=== PATIENT | female | born 1940 | race Caucasian/White ===

== ENCOUNTER 2020-05-01 14:23 | Outpatient (CLI) | payer MEDICARE, SELFPAY ==
[2020-05-01 15:11] LABS: Basophils Percent Auto 0.4 % (0.2-1.2); Eosinophils Absolute Auto 0.1 K/mm3 (0-0.3); Eosinophils Percent Auto 2.5 % (0-4.4); Hematocrit 35.9 % (37.0-47.0); Hemoglobin 11.6 g/dL (12.0-15.0); Immature Granulocyte Absolute 0.02 K/mm3 (0.00-0.031); Immature Granulocyte Percent A 0.4 % (0-0.5); Lymphocytes Absolute Auto 0.96 K/mm3 (0.9-3.2); Lymphocytes Percent Auto 18.4 % (18.3-44.2); Mean Corpuscular HGB Conc 32.3 g/dl (32-36); Mean Corpuscular Hemoglobin 30.3 pg (26-34); Mean Corpuscular Volume 93.7 fl (80-100); Mean Platelet Volume 10.9 fl (7.4-10.4); Monocytes Absolute Auto 0.8 K/mm3 (0.1-0.6); Monocytes Percent Auto 14.9 % (2.6-8.5); Neutrophils Absolute Auto 3.3 K/mm3 (1.3-6.7); Neutrophils Percent Auto 63.4 % (45.5-73.1); Platelet Count Result 122 k/mm3 (150-375); Red Blood Count 3.83 M/mm3 (4.2-5.4); Red Cell Distribution Width 14.6 % (11.5-14.5); White Blood Count 5.2 K/mm3 (4.5-10.0)
[2020-05-01 16:42] LABS: Iron 78 ug/dL (37-170)
[2020-05-01 16:52] LABS: Percent Iron Saturation 25 % (20-50)
== END 2020-05-01 14:24 | disposition home or self-care (01) ==
LOC: ANHLAB 14:27
PROVIDERS: PCP Internal Medicine; Visit Provider Internal Medicine Hematology & Oncology
DX: D50.9 Iron deficiency anemia, unspecified (principal)
CPT/HCPCS: 36415; 83540; 83550; 85025

== ENCOUNTER 2020-09-20 12:35 | Outpatient (CLI) | payer MEDICARE, SELFPAY ==
--- NOTE | 2020-09-21 16:47 | WPDPFTINT ---
PFT Procedure Performed PFT Procedure Performed Spirometry with Pre/Post Bronchodilator Plethysmography (Lung Vol) Diffusing Cap (DLCO) Flow Vol Loop PFT Interpretation This is a pulmonary function test with pre and post-bronchodilator spirometry, plethysmography and diffusing capacity. The test was performed and results interpreted in accordance with the 2019 and 2005 ATS/ERS Task Force guidelines respectively using the Global Lung Function Initiative-2012 reference equations. Patient demonstrated good effort and cooperation. Reproducibility criteria were met. The quality of the pre bronchodilator spirometry maneuver was Grade A and post bronchodilator spirometry maneuver was Grade A. Findings: Spirometry: There is decreased maximal expiratory airflow at low lung volumes with concave expiratory flow tracing. The pre bronchodilator FVC is 1.02 L, 56% predicted. The pre bronchodilator FEV1 is 0.74 L, 52% predicted. The FEV1: FVC ratio 72%. The post bronchodilator FVC is 1.01 L, representing no change. The post bronchodilator FEV1 is 0.79 L, representing a 7% increase. Plethysmography: The total lung capacity is 2.09 L, 54% predicted. The functional residual capacity is 1.10 L, 50% predicted. The residual volume is 0.93 L, 46% predicted. Diffusing capacity: The absolute diffusion capacity is 7.8, 49% predicted. The diffusing capacity corrected for alveolar volume is 3.97, 89% predicted. Impression: There is a combined obstructive and restrictive ventilatory abnormality. There are no guidelines to assign the severity of obstruction and restriction with a combined abnormality. In my opinion, given the mildly concave expiratory flow tracing and normal FEV1: FVC ratio and moderate restrictive abnormality I would state there is a mild obstructive abnormality and a moderate restrictive abnormality resulting in a moderately severe decreased FEV1. There is no significant improvement after inhaling a single dose of albuterol. The diffusing capacity is moderately decreased but normalizes when corrected for alveolar volume. There are no prior studies for comparison
== END 2020-09-20 12:36 | disposition home or self-care (01) ==
PROVIDERS: PCP Internal Medicine; Visit Provider Internal Medicine Critical Care Medicine
DX: R06.02 Shortness of breath (principal)
CPT/HCPCS: 94060; 94726; 94729

== ENCOUNTER 2021-10-15 15:13 | Inpatient (IN) | payer MEDICARE, SELFPAY ==
[2021-10-15] VITALS (19 sets, daily range): BP systolic 100–122; BP diastolic 45–69; PULSE 66–83; RESP 14–31; TEMP 36.7–37; O2SAT 95–100; BMI 29.3
--- NOTE | ~2021-10-15 | CT_ITS ---
EXAMINATION: CT abdomen pelvis wo con DATE: 10/15/2021 16:28 INDICATION: Abdominal pain, possible diverticulitis TECHNIQUE: Computed tomography (CT) of the abdomen and pelvis was performed without intravenous contr ast. The dose-length product (DLP) was 872.51 mGy-cm. Automated exposure control and iterative recons truction technique were employed. COMPARISON: None FINDINGS: There are small pleural effusions. There is mild atelectasis of the visualized lung bases. The heart size is normal. There is a 9 mm cyst of the right hepatic lobe. Punctate calcifications of the liver and spleen are consistent with old granulomatous disease. The pancreas and adrenal glands a re normal. The right kidney is unremarkable. There is a 1.5 cm cyst of the left kidney. 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 No pathologically enlarged abdomina l or pelvic lymph nodes are identified. There is no free intraperitoneal gas or evidence of bowel obs truction. There is streak artifact in the pelvis from right hip arthroplasty and intramedullary left femoral edy. There is inflammatory change in the pelvis, likely related to diverticulitis although as sessment is difficult due to streak artifact. There are compression and burst fractures throughout th e visualized lower thoracic and lumbar spine. Vertebroplasty change is present at L1. IMPRESSION: 1. Probable uncomplicated diverticulitis of the sigmoid colon. Assessment is limited by streak artifa ct in the pelvis from orthopedic hardware. Reviewed, dictated and finalized at location A. IMPRESSION: 1. Probable uncomplicated diverticulitis of the sigmoid colon. Assessment is li mited by streak artifact in the pelvis from orthopedic hardware.
--- NOTE | ~2021-10-15 | XR_ITS ---
EXAMINATION: XR chest 1V portable DATE: 10/15/2021 22:15 INDICATION: Wheezing. TECHNIQUE: A single frontal view of the chest was obtained. COMPARISON: CT abdomen and pelvis 10/15/2021 FINDINGS: A calcified left lung nodule and calcified left hilar lymph nodes are consistent with old g ranulomatous disease. There are airspace opacities at left lung base. No pleural effusion or pneumoth orax. The heart size is normal. There are changes of vertebroplasty in lumbar spine. IMPRESSION: 1. Airspace opacities at left lung base, consistent with atelectasis versus pneumonia. Reviewed, dictated and finalized at location A. IMPRESSION: 1. Airspace opacities at left lung base, consistent with atelectasis versus pne umonia.
--- NOTE | 2021-10-15 15:53 | ED.ABDPAIN ---
HPI - Abdominal Pain General Chief Complaint: Abdominal Pain Stated Complaint: diverticulitis flare Time Seen by Provider: 10/15/21 15:51 History of Present Illness HPI narrative: The patient is an 81-year-old female with a history of asthma/COPD, atrial fibrillation, aortic stenosis, hypertension, hyperlipidemia, presenting to the emergency department for evaluation of abdominal pain. Patient reports lower abdominal pain that is worsening over the past several days. Associated with nausea, but no episodes of emesis. She reports mild constipation especially if she forgets to take MiraLAX. Patient denies any blood or mucus present in her stool. Patient reports aching pain in the right left lower quadrant. She denies any dysuria or hematuria. Patient reports subjective fever and chills. Patient has had decreased oral intake secondary to the abdominal pain. Patient states that in the past she has a history of diverticulitis and that this feels similar. Of note, patient's family states she has a history of chronic back pain, vertebral fractures, spine surgery for which she used to follow with pain management. Patient became tired of the constant follow-ups and interventions in this patient had stopped most of her pain management medication months ago and has not been seen for follow-up. She denies recent fall or injury but reports chronic back pain without focal weakness or numbness. Related Data Home Medications Medication Instructions Recorded Confirmed albuterol sulfate 2.5 mg/3 mL 2.5 mg inhalation Q6H 07/18/20 (0.083 %) solution for nebulization atorvastatin 10 mg tablet 10 mg PO DAILY 07/18/20 citalopram 40 mg tablet 20 mg PO DAILY 07/18/20 diltiazem HCl 180 mg 180 mg PO DAILY 07/18/20 capsule,extended release 24 hr furosemide 40 mg tablet 40 mg PO QAM 07/18/20 budesonide-formoterol HFA 80 2 puff inhalation Q12H 07/19/20 mcg-4.5 mcg/actuation aerosol inhaler (Symbicort) calcium carbonate 600 mg-vitamin 1 tablet PO DAILY 07/19/20 D3 5 mcg (200 unit) tablet ferrous sulfate 325 mg (65 mg 325 mg PO DAILY 07/19/20 iron) tablet levothyroxine 125 mcg capsule 125 mcg PO DAILY 07/19/20 metoprolol tartrate 25 mg tablet 12.5 mg PO DAILY 05/20/21 omeprazole 40 mg capsule,delayed 40 mg PO DAILY 07/19/20 release potassium chloride 20 mEq 20 meq PO DAILY 07/19/20 tablet,extended release rivaroxaban 20 mg tablet (Xarelto) 20 mg PO DAILY 07/19/20 Allergies Allergy/AdvReac Type Severity Reaction Status Date / Time metoclopramide Allergy Unknown Unknown Verified 10/15/21 18:29 Iodinated Contrast Media Allergy Hives Verified 10/15/21 18:29 raloxifene [From Evista] Allergy Unknown Verified 10/15/21 18:29 sulfamethoxazole Allergy Unknown Verified 10/15/21 18:29 [From Bactrim] trimethoprim [From Bactrim] Allergy Unknown Verified 10/15/21 18:29 codeine AdvReac Unknown Nausea Verified 10/15/21 18:29 Review of Systems Review of Systems: CONSTITUTIONAL: Denies fever, chills, or sweats. ENT: Denies rhinorrhea, congestion, sore throat, or otalgia. CARDIOVASCULAR: Denies chest pain, palpitations, or edema. RESPIRATORY: Denies cough or dyspnea. GASTROINTESTINAL: Patient reports abdominal pain, nausea, constipation GENITOURINARY: Denies dysuria or hematuria. SKIN: Denies rash or itching. MUSCULOSKELETAL: Reports chronic back pain, denies focal joint pain, or myalgia. NEUROLOGIC: Denies headache, numbness, patient reports feeling generally weak PMFSH Past Medical History Medical History Anxiety and depression Aortic stenosis Asthma-COPD overlap syndrome Atrial fibrillation Chronic pain Diabetes mellitus Hyperlipidemia Hypertension Hypothyroidism Restless legs syndrome (RLS) Surgical History Surgical History H/O: hysterectomy History of orthopedic surgery Hx of appendectomy Hx of rojas
[2021-10-15 16:18] LABS: Appearance Urine Clear (Clear); Basophils Percent Auto 0.5 % (0.2-1.2); Bilirubin Urine 1+ (Negative); Blood Urine Negative (Negative); Color Urine Yellow (Yellow); Eosinophils Absolute Auto 0.1 K/mm3 (0-0.3); Eosinophils Percent Auto 0.6 % (0-4.4); Glucose Urine UA Negative (Negative); Hemoglobin 13.2 g/dL (12.0-15.0); Immature Granulocyte Absolute 0.02 K/mm3 (0.00-0.031); Immature Granulocyte Percent A 0.3 % (0-0.5); Immature Platelet Fraction Pct 2.6 % (0.9-11.2); Ketones Urine Trace mg/dL (Negative); Leukocyte Esterase Ur Negative LEU/UL (Negative); Lymphocytes Absolute Auto 1.34 K/mm3 (0.9-3.2); Lymphocytes Percent Auto 16.8 % (18.3-44.2); Mean Corpuscular HGB Conc 33.8 g/dl (32-36); Mean Corpuscular Hemoglobin 32.2 pg (26-34); Mean Corpuscular Volume 95.1 fl (80-100); Mean Platelet Volume 10.6 fl (7.4-10.4); Monocytes Absolute Auto 1.4 K/mm3 (0.1-0.6); Monocytes Percent Auto 17.6 % (2.6-8.5); Neutrophils Absolute Auto 5.1 K/mm3 (1.3-6.7); Neutrophils Percent Auto 64.2 % (45.5-73.1); Nitrate Urine Negative (Negative); Platelet Count Result 110 k/mm3 (150-375); Protein Urine Negative (Negative); Red Cell Distribution Width 14.7 % (11.5-14.5); Specific Grav Ur 1.015 (1.001-1.035)
[2021-10-15 16:29] LABS: Alanine Aminotransferase 19 U/L (6-35); Albumin Level 2.9 g/dL (3.5-5.1); Alkaline Phosphatase 112 U/L (38-126); Anion Gap 9 mmol/L (8-16); Aspartate Amino Transferase 36 U/L (14-36); Blood Urea Nitrogen 16 mg/dL (7-17); Calcium 7.9 mg/dL (8.4-10.2); Carbon Dioxide 27 mmol/L (22-30); Chloride 98 mmol/L (98-107); Estimated Glomerular Filt Rate > 60; Glucose 89 mg/dL (65-110); Lipase 25 U/L (23-300); Potassium 2.8 mmol/L (3.4-5.0); Sodium 134 mmol/L (137-145)
[2021-10-15 16:40] LABS: Mucus Urine Rare /lpf; RBC Urine 0-2 /hpf (0-2); WBC Urine 0-3 /hpf
[2021-10-15 16:45] LABS: Add Urine Microscopic? YES
[2021-10-15] MEDS: SODIUM CHLORIDE 0.9% IV 1,000 ML 999 ML IV CONT (16:49)
[2021-10-15 17:40] LABS: Magnesium 1.9 mg/dL (1.6-2.3); Phosphorus 2.9 mg/dL (2.5-4.5)
[2021-10-15] MEDS: POTASSIUM CHLORIDE INJ 40 MEQ in SODIUM CHLORIDE 0.9% IV 500 ML 130 MEQ IVPB ×2 (17:49→23:25)
[2021-10-15] MEDS: metroNIDAZOLE 500 MG/ISO 100ML 500 MG/100 ML BAG 100 MG IVPB (19:23)
[2021-10-15 19:38] LABS: SARS-CoV-2 RNA PCR Negative
[2021-10-15] MEDS: ACETAMINOPHEN 325 MG TABLET 650 MG PO (19:47)
[2021-10-15] MEDS: CIPROFLOXACIN 400 MG/D5W 200ML 200 ML 200 MG IVPB (20:42)
--- NOTE | 2021-10-15 21:24 | ADMGEN ---
This patient, Tammy Mccracken, was admitted to Medical Room [facility]- at 2110. Patient/family oriented to hospital policies and general routines including ID bracelet, bed and alarms, visiting hours, pain management, procedures, bathroom and other care routines, personal items, smoking policy, room service/diet, and visiting hours. Information on how to activate the Rapid Response Team has been discussed. Patient/Family are encouraged to report perceived risks to care and to ask questions if they do not understand what they are told or what they should do.
[2021-10-15 21:38] LABS: Glucose Point of Care 131 mg/dl (65-105)
[2021-10-15] MEDS: FAMOTIDINE 20 MG/2 ML VIAL IV PUSH (22:17)
[2021-10-15] MEDS: fentaNYL CITRATE INJ (*CRX) 100 MCG/2 ML VIAL 25 MCG IV PUSH (22:17)
--- NOTE | 2021-10-15 22:36 | PM.IMHP ---
H&P: HPI History of Present Illness Date/Time: 10/15/21 22:36 Chief Complaint: Abdominal pain Narrative: Greater than 30 minutes spent reviewing chart, evaluating, treating, counseling patient. Anticipate less than 48 hour admission, will admit under observation. 81-year-old female past medical history of depression/anxiety, hypothyroidism, COPD with restrictive component based on 08/2020 PFTs, aortic stenosis, atrial fibrillation not on anticoagulation, diabetes, HLD/HTN, RLS. Presents with abdominal pain that started 5 days ago. Patient reports sharp and crampy pain that is intermittent. States it is mainly in bilateral upper quadrants. denies nausea/vomiting. Patient typically has regular bowel movements while taking MiraLax, however for the last 5 days has had constipation with only a small amount of stool yesterday. Denies melena or hematochezia. Patient reports poor food intake, still however states she has been hydrating. Patient also reports chest pain that occurred 5 days ago while she was sitting watching TV. States epigastric, felt like indigestion without radiation. Denied nausea/vomiting or shortness of breath with a vent. Lasted for about 4 minutes. Patient states she has these episodes from time to time. Patient denies fever/chills. In ED, vitals stable. Patient is afebrile. Labs remarkable for platelet count of 110, potassium 2.8, sodium 134, calcium 7.9, bilirubin 3 with normal AST/ALT. 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 CT also shows probable uncomplicated diverticulitis of the sigmoid colon. Patient given dose of Cipro/Flagyl, Pepcid, potassium 40 mEq, and 1 L normal saline bolus. Review of Systems Review of Systems: Ten point ROS reviewed, negative unless otherwise specified per HPI [facility] Past Medical History Medical History (Updated 10/15/21 @ 22:47 by Alek Obregon DO) Anxiety and depression Aortic stenosis Asthma-COPD overlap syndrome Atrial fibrillation Chronic pain Diabetes mellitus Hyperlipidemia Hypertension Hypothyroidism Restless legs syndrome (RLS) Surgical History Surgical History H/O: hysterectomy History of orthopedic surgery Hx of appendectomy Hx of cholecystectomy Hx of tonsillectomy Family History Family History (Updated 10/15/21 @ 21:28 by Gary Carcamo RN) Father Malignant tumor of colon Heart disease Cerebrovascular accident Mother Diabetes mellitus Heart disease Sibling Breast cancer Social History Social History Smoking status: Never smoker Second hand tobacco smoke exposure: No Alcohol intake: never Substance use: never Spiritual care concerns: No Meds Home Medications and Allergies Home Medications Medication Instructions Recorded Confirmed Type albuterol sulfate 2.5 mg/3 mL 2.5 mg inhalation Q6H PRN Wheezing 07/18/20 10/15/21 History (0.083 %) solution for nebulization atorvastatin 10 mg tablet 10 mg PO DAILY 07/18/20 10/15/21 History citalopram 40 mg tablet 40 mg PO DAILY 07/18/20 10/15/21 History furosemide 40 mg tablet 40 mg PO BID 07/18/20 10/15/21 History budesonide-formoterol HFA 80 2 puff inhalation Q12H 07/19/20 10/15/21 History mcg-4.5 mcg/actuation aerosol inhaler (Symbicort) calcium carbonate 600 mg-vitamin 1 tablet PO DAILY 07/19/20 10/15/21 History D3 5 mcg (200 unit) tablet ferrous sulfate 325 mg (65 mg 325 mg PO DAILY 07/19/20 10/15/21 History iron) tablet levothyroxine 125 mcg capsule 125 mcg PO DAILY 07/19/20 10/15/21 History metoprolol tartrate 25 mg tablet 25 mg PO BID 07/19/20 10/15/21 History omeprazole 40 mg capsule,delayed 40 mg PO DAILY 07/19/20 10/15/21 History release potassium chloride 20 mEq 10 meq PO DAILY 07/19/20 10/15/21 History tablet,extended release
[2021-10-15] MEDS: LACTATED RINGERS 1,000 ML 100 ML IV CONT (23:25)
[2021-10-16] VITALS (11 sets, daily range): BP systolic 116–125; BP diastolic 44–57; PULSE 55–82; RESP 14–18; TEMP 36.3–36.9; O2SAT 96–99
--- NOTE | 2021-10-16 | ECG_ITS ---
Measurements Intervals [address] Rate: 62 P: 24 [place]: 148 QRS: -16 QRSD: 106 T: 0 QT: 431 QTc: 440 Interpretive Statements SINUS RHYTHM LEFT VENTRICULAR HYPERTROPHY AND ST-T CHANGE [VOLTAGE CRITERIA PLUS ST/T ABNORMALITY] ABNORMAL ECG NO PREVIOUS ECG AVAILABLE FOR COMPARISON Electronically Signed On 10-16-2021 10:49:34 CDT by Roger Guzman M.D.
[2021-10-16] MEDS: METOPROLOL TARTRATE 25 MG TABLET PO ×3 (00:51→16:28)
[2021-10-16] MEDS: metroNIDAZOLE 500 MG/ISO 100ML 500 MG/100 ML BAG 100 MG IVPB ×3 (05:06→20:39)
[2021-10-16] MEDS: LEVOTHYROXINE SODIUM 125 MCG TABLET PO (05:06)
[2021-10-16 06:54] LABS: Basophils Percent Auto 0.5 % (0.2-1.2); Eosinophils Absolute Auto 0.2 K/mm3 (0-0.3); Eosinophils Percent Auto 3.2 % (0-4.4); Hematocrit 36.1 % (37.0-47.0); Hemoglobin 11.9 g/dL (12.0-15.0); Immature Granulocyte Absolute 0.03 K/mm3 (0.00-0.031); Immature Granulocyte Percent A 0.5 % (0-0.5); Immature Platelet Fraction Pct 2.6 % (0.9-11.2); Lymphocytes Absolute Auto 1.15 K/mm3 (0.9-3.2); Lymphocytes Percent Auto 20.3 % (18.3-44.2); Mean Corpuscular Hemoglobin 31.6 pg (26-34); Mean Corpuscular Volume 95.8 fl (80-100); Mean Platelet Volume 10.8 fl (7.4-10.4); Monocytes Absolute Auto 0.9 K/mm3 (0.1-0.6); Monocytes Percent Auto 15.5 % (2.6-8.5); Neutrophils Absolute Auto 3.4 K/mm3 (1.3-6.7); Red Blood Count 3.77 M/mm3 (4.2-5.4); Red Cell Distribution Width 14.9 % (11.5-14.5); White Blood Count 5.7 K/mm3 (4.5-10.0)
[2021-10-16 07:11] LABS: Alanine Aminotransferase 16 U/L (6-35); Albumin Level 2.3 g/dL (3.5-5.1); Alkaline Phosphatase 89 U/L (38-126); Anion Gap 3 mmol/L (8-16); Aspartate Amino Transferase 32 U/L (14-36); Bilirubin,Total 1.3 mg/dL (0.2-1.3); Blood Urea Nitrogen 15 mg/dL (7-17); Calcium 7.8 mg/dL (8.4-10.2); Carbon Dioxide 27 mmol/L (22-30); Chloride 103 mmol/L (98-107); Estimated Glomerular Filt Rate > 60; Glucose 76 mg/dL (65-110); Potassium 3.7 mmol/L (3.4-5.0); Sodium 133 mmol/L (137-145)
[2021-10-16 07:31] LABS: Hemoglobin A1C 4.7 % (<5.7)
[2021-10-16 07:34] LABS: Platelet Count Result 85 k/mm3 (150-375)
[2021-10-16 08:19] LABS: Glucose Point of Care 92 mg/dl (65-105)
[2021-10-16 08:19] LABS: Thyroid Stimulating Hormone Reflex 0.921 uIU/mL (0.465-4.68)
[2021-10-16] MEDS: FERROUS SULFATE 324 MG TABLET PO (08:42)
[2021-10-16] MEDS: CITALOPRAM HYDROBROMIDE 20 MG TABLET 40 MG PO (08:43)
[2021-10-16] MEDS: CIPROFLOXACIN 400 MG/D5W 200ML 200 ML 200 MG IVPB ×2 (08:44→20:39)
[2021-10-16] MEDS: FAMOTIDINE 20 MG/2 ML VIAL IV PUSH ×2 (08:44→20:39)
[2021-10-16] MEDS: PANTOPRAZOLE SODIUM IV 40 MG VIAL IV PUSH (08:44)
[2021-10-16 12:40] LABS: Glucose Point of Care 112 mg/dl (65-105)
--- NOTE | 2021-10-16 15:41 | PM.IMPN ---
Progress Note: A&P Assessment and Plan (1) Diverticulitis large intestine: Code(s): K57.32 - Diverticulitis of large intestine without perforation or abscess without bleeding Status: Acute Assessment and Plan: Presented with abdominal pain, stating similar symptoms to prior episode of diverticulitis CT on presentation showed uncomplicated diverticulitis of the sigmoid colon Continue metronidazole and ciprofloxacin Full liquid diet. Advance diet as tolerated Supportive care. Analgesics available as needed Will discontinue IV fluids as patient is tolerating PO intake (2) Acute hypokalemia: Code(s): E87.6 - Hypokalemia Status: Acute Assessment and Plan: Resolved with supplementation Potassium 3.7 today Monitor BMP (3) Atrial fibrillation: Code(s): I48.91 - Unspecified atrial fibrillation Status: Acute Assessment and Plan: Rate is controlled. Continue metoprolol tartrate She was recently taken off Xarelto and Cardizem for unclear reasons. She is not on systemic anticoagulation, possibly due to fall risk. (4) Diabetes mellitus: Code(s): E11.9 - Type 2 diabetes mellitus without complications Status: Acute Assessment and Plan: A1c is 4.7 No need for further monitoring (5) Asthma-COPD overlap syndrome: Code(s): J44.9 - Chronic obstructive pulmonary disease, unspecified Status: Acute Assessment and Plan: No acute issues at this time Albuterol as needed (6) Anxiety and depression: Code(s): F41.9 - Anxiety disorder, unspecified; F32.9 - Major depressive disorder, single episode, unspecified Status: Acute Assessment and Plan: No acute issues Continue citalopram (7) Hypothyroidism: Code(s): E03.9 - Hypothyroidism, unspecified Status: Acute Assessment and Plan: TSH is within normal limits Continue levothyroxine (8) Abnormal chest x-ray: Code(s): R93.89 - Abnormal findings on diagnostic imaging of other specified body structures Status: Acute Assessment and Plan: CXR completed yesterday indication of wheezing, patient denies wheezing and no wheezing on exam today CXR showed airspace opacities at the left lung base consistent with atelectasis vs pneumonia Patient has no clinical signs/symptoms to suggest pneumonia. Does report history 3 weeks productive cough that has long been resolved At this time, no indication for antibiotics/treatment of pneumonia Provided incentive spirometry for likely atelectasis Subjective Date/time seen: 10/16/21 15:41 Interval history: Date of service: 10/16/2021 Tammy Mccracken is 81-year-old female with a history of atrial fibrillation, type 2 diabetes mellitus, hypertension, hyperlipidemia, hypothyroidism, aortic stenosis who is seen in follow-up for acute uncomplicated diverticulitis. Patient states this morning she was having abdominal pain that has resolved after she had a bowel movement. She reports a bright red bloody stool today. She has been able to tolerate her full liquid diet. She endorses ?a little bit of nausea but no episodes of emesis. Denies fevers or chills. She denies weakness, dizziness, lightheadedness. She typically uses a wheelchair but does not have this here. She was able to stand and pivot today to the bedside commode with assistance. She denies shortness of breath or cough. She states about 3 weeks ago she had a productive cough that has resolved. She denies hematemesis. No chest pain. Denies urinary symptoms including dysuria or hematuria. Review of Systems Review of Systems: All systems reviewed & are unremarkable except as noted in HPI and below Exam Narrative: General: Well-nourished, well-appearing 81-year-old female, sitting up in bed, comfortable, NARD Neuro: awake, alert and oriented x4, speech clear, no focal neuro deficits noted HEENMT: normocephali
[2021-10-16 17:10] LABS: Glucose Point of Care 83 mg/dl (65-105)
--- OUTSIDE RECORDS SUMMARY | 2021-10-16 19:24 | XMS_ITS ---
:1940 Author Care Team Providers Name Role Phone DR. MARIA TERESA NGUYEN Primary Care Provider [phone] DR. MARIA TERESA NGUYEN Referring Provider [phone] Allergies Code Code System Name Reaction Severity Status Onset Iodinated Contrast Hives Moderate to Active 01/23/2014 Media Severe 213717 RxNorm Bactrim ? ? Active ? 2670 RxNorm Codeine ? ? Active ? 712239 RxNorm Evista ? ? Active ? 5630 RxNorm Reglan ? ? Active ? Notes: Some allergies listed in Docume nts: #[id number], #[id number], [id number], [id number], [id number], [id number], #[id number], [id number], [id number], [id number], [id number], #[id number] c ould not be added to this patient's chart. Please review these documents and add th baldemar allergies to the patient's chart manually as needed. Medications Name Status Start Date Stop Date ? ? albuterol sulfate 2.5 mg/3 mL (0.083 %) solution for nebulizatio n Completed ? 03/23/2018 INHALE 1 VIAL PER NEBULIZER Q 6 H PRN albuterol sulfate HFA 90 mcg/actuation aerosol Active ? Not available inhaler Alphagan P 0.1 % eye drops Completed ? 01/11 alprazolam 0.25 mg tablet Completed ? 2016 amoxicillin 500 mg capsule Completed ? 05/12 TK ONE C PO TID FOR 7 DAYS amoxicillin 500 mg tablet Unknown ? Not av ailable Take 1 tablet 3 times a day by oral route for 7 days. amoxicillin 875 mg tablet Unknown ? Not av ailable amoxicillin 875 mg-potassium clavulanate 125 mg tablet Completed ? 04/22/2021 TAKE 1 TABLET BY MOUTH EVERY 12 HOURS FOR 7 DAYS ampicillin 500 mg capsule Completed ? 2020 Take 1 capsule TID for 7 days
--- OUTSIDE RECORDS SUMMARY | 2021-10-16 19:24 | XMS_ITS ---
:1940 Author Care Team Providers Name Role Phone DR. MARIA TERESA NGUYEN Primary Care Provider [phone] DR. MARIA TERESA NGUYEN Referring Provider [phone] VIRA LARIOS OTHER [phone] MARIA TERESA NGUYEN MD Primary Care Provider [phone] Allergies Code Code System Name Reaction Severity Status Onset Iodinated Contrast Hives Moderate to Active 01/23/2014 Media Severe 801552 RxNorm Bactrim ? ? Active ? 2670 RxNorm Codeine ? ? Active ? 040733 RxNorm Evista ? ? Active ? 9230 RxNorm Reglan ? ? Active ? Notes: Some allergies listed in Docume nts: #[id number], #[id number], #[id number], #[id number], #[id number], #[id number], #[id number], #[id number], #[id number] could not be added to this patient's chart. Please review these doc uments and add these allergies to the patient's chart manually as needed. Medications Name Status Start Date Stop Date ? ? albuterol sulfate 2.5 mg/3 mL (0.083 %) solution for nebulizatio n Completed ? 03/23/2018 INHALE 1 VIAL PER NEBULIZER Q 6 H PRN albuterol sulfate HFA 90 mcg/actuation aerosol Active ? Not available inhaler Alphagan P 0.1 % eye drops Completed ? 01/11 Alphagan P 0.15 % eye drops Active ? Not available alprazolam 0.25 mg tablet Completed ? 2016 amoxicillin 500 mg capsule Completed ? 05/12 TK ONE C PO TID FOR 7 DAYS amoxicillin 500 mg tablet Unknown ? Not av ailable Take 1 tablet 3 times a day by oral route for 7 days. amoxicillin 875 mg tablet Unknown ? Not av ailable amoxicillin 875 mg-potassium clavulanate 125 mg tablet Completed ? 01/21/2017 TK ONE T PO Q 12 H FOR 7 DAYS ampicillin
[2021-10-16 20:52] LABS: Glucose Point of Care 95 mg/dl (65-105)
[2021-10-16] MEDS: KETOROLAC 30 MG/ML VIAL (*BKC) IM (21:05)
[2021-10-17] VITALS (7 sets, daily range): BP systolic 128; BP diastolic 48; PULSE 54–69; RESP 14–18; TEMP 36.7; O2SAT 99
[2021-10-17 06:02] LABS: Hematocrit 35.5 % (37.0-47.0); Hemoglobin 11.9 g/dL (12.0-15.0); Immature Platelet Fraction Pct 2.5 % (0.9-11.2); Mean Corpuscular HGB Conc 33.5 g/dl (32-36); Mean Corpuscular Hemoglobin 32.1 pg (26-34); Mean Corpuscular Volume 95.7 fl (80-100); Mean Platelet Volume 10.6 fl (7.4-10.4); Platelet Count Result 98 k/mm3 (150-375); Red Blood Count 3.71 M/mm3 (4.2-5.4); Red Cell Distribution Width 14.9 % (11.5-14.5); White Blood Count 4.8 K/mm3 (4.5-10.0)
[2021-10-17] MEDS: LEVOTHYROXINE SODIUM 125 MCG TABLET PO (06:09)
[2021-10-17] MEDS: metroNIDAZOLE 500 MG/ISO 100ML 500 MG/100 ML BAG 100 MG IVPB (06:10)
[2021-10-17 06:13] LABS: Anion Gap 2 mmol/L (8-16); Blood Urea Nitrogen 16 mg/dL (7-17); Calcium 8.2 mg/dL (8.4-10.2); Carbon Dioxide 27 mmol/L (22-30); Chloride 101 mmol/L (98-107); Estimated Glomerular Filt Rate 53; Glucose 77 mg/dL (65-110); Potassium 3.8 mmol/L (3.4-5.0); Sodium 130 mmol/L (137-145)
[2021-10-17 07:42] LABS: Glucose Point of Care 78 mg/dl (65-105)
[2021-10-17] MEDS: CITALOPRAM HYDROBROMIDE 20 MG TABLET 40 MG PO (08:25)
[2021-10-17] MEDS: CIPROFLOXACIN 400 MG/D5W 200ML 200 ML 200 MG IVPB (08:25)
[2021-10-17] MEDS: FERROUS SULFATE 324 MG TABLET PO (08:26)
[2021-10-17] MEDS: METOPROLOL TARTRATE 25 MG TABLET PO (08:26)
[2021-10-17] MEDS: PANTOPRAZOLE SODIUM IV 40 MG VIAL IV PUSH (08:26)
[2021-10-17] MEDS: FAMOTIDINE 20 MG/2 ML VIAL IV PUSH (08:26)
[2021-10-17] MEDS: ALBUTEROL SULFATE NEB 2.5 MG/3 ML INH INHALATION (10:44)
--- NOTE | 2021-10-17 11:37 | PM.DS ---
DS: Admitting Diagnosis Discharge Date 10/17/2021 Admitting Diagnosis Diverticulitis DS: Discharge Diagnosis Discharge Diagnosis (1) Diverticulitis large intestine: Code(s): K57.32 - Diverticulitis of large intestine without perforation or abscess without bleeding Status: Acute Assessment and Plan: Presented with abdominal pain, stating similar symptoms to prior episode of diverticulitis CT on presentation showed uncomplicated diverticulitis of the sigmoid colon Treated with IV metronidazole and ciprofloxacin, transition to PO on discharge for full course of treatment Able to advance to bland, low fiber diet and tolerated well. Supportive care provided Follow up with PCP to consider outpatient colonoscopy (2) Acute hypokalemia: Code(s): E87.6 - Hypokalemia Status: Acute Assessment and Plan: Resolved with supplementation (3) Atrial fibrillation: Code(s): I48.91 - Unspecified atrial fibrillation Status: Acute Assessment and Plan: Rate remained controlled. Continue metoprolol tartrate She was recently taken off Xarelto and Cardizem for unclear reasons. She is not on systemic anticoagulation, possibly due to fall risk. (4) Diabetes mellitus: Code(s): E11.9 - Type 2 diabetes mellitus without complications Status: Acute Assessment and Plan: A1c is 4.7 No need for further monitoring (5) Asthma-COPD overlap syndrome: Code(s): J44.9 - Chronic obstructive pulmonary disease, unspecified Status: Acute Assessment and Plan: No acute issues during admission Albuterol as needed (6) Anxiety and depression: Code(s): F41.9 - Anxiety disorder, unspecified; F32.9 - Major depressive disorder, single episode, unspecified Status: Acute Assessment and Plan: No acute issues Continue citalopram (7) Hypothyroidism: Code(s): E03.9 - Hypothyroidism, unspecified Status: Acute Assessment and Plan: TSH is within normal limits Continue levothyroxine (8) Abnormal chest x-ray: Code(s): R93.89 - Abnormal findings on diagnostic imaging of other specified body structures Status: Acute Assessment and Plan: CXR completed for reported wheezing, patient denied wheezing and no wheezing appreciated on exam CXR showed airspace opacities at the left lung base consistent with atelectasis vs pneumonia Patient had no clinical signs/symptoms to suggest pneumonia. Does report history 3 weeks ago of productive cough that has since resolved No indication for antibiotics/treatment of pneumonia Provided incentive spirometry for likely atelectasis (9) Thrombocytopenia: Code(s): D69.6 - Thrombocytopenia, unspecified Status: Acute Assessment and Plan: Mild. Review of prior labs also demonstates low [place] Repeat CBC with diff as an outpatient in 1-2 weeks DS: Summary Hospital Course Hospital Course: Date of admission: 10/15/2021 Date of discharge: 10/17/2021 Tammy Mccracken is 81-year-old female with a history of atrial fibrillation, type 2 diabetes mellitus, hypertension, hyperlipidemia, hypothyroidism, aortic stenosis?who presented to the emergency department on 10/15/2021 with complaints of abdominal pain worsening over the past several days with associated nausea. On presentation to the ED, her vital signs were stable, she was afebrile, CBC unremarkable, potassium 2.8, additional electrolytes stable, and CT of the abdomen/pelvis showed uncomplicated diverticulitis of the sigmoid colon. She was admitted to the hospitalist service for further evaluation and management. Please see above for further details. She was treated with IV antibiotics and had symptomatic improvement. Her diet was slowly advanced and she was eventually able to tolerate a bland, low-fiber diet. Her abdominal pain resolved and her stool patterns were normal. She initially self rep
[2021-10-17 12:45] LABS: Glucose Point of Care 137 mg/dl (65-105)
--- OUTSIDE RECORDS SUMMARY | 2021-10-18 11:22 | XMS_ITS ---
:1940 Author Care Team Providers Name Role Phone DR. MARIA TERESA NGUYEN Primary Care Provider [phone] DR. MARIA TERESA NGUYEN Referring Provider [phone] Allergies Code Code System Name Reaction Severity Status Onset Iodinated Contrast Hives Moderate to Active 01/23/2014 Media Severe 543832 RxNorm Bactrim ? ? Active ? 2670 RxNorm Codeine ? ? Active ? 451313 RxNorm Evista ? ? Active ? 0530 RxNorm Reglan ? ? Active ? Notes: Some allergies listed in Docume nts: #[id number], #[id number], [id number], [id number], [id number], [id number], [id number], [id number], [id number], [id number], [id number], [id number], #[id number], [id number], #[id number] c ould not be added to this [...]
--- NOTE | 2021-10-21 16:28 | PC.NURSE ---
Patient's daughter called reporting that she had a >100 degree fever, dark stools, and was talking nonsense. She did not want to call 911 as they are closer to [place] and she did not want for her mother to go there. The daughter said she felt safe loading her mom into the car along with her niece. Advised that her mother should come in to be seen since her primary physician is closed at this time.
== END 2021-10-17 13:50 | disposition home or self-care (01) | DRG 392 ==
LOC: ANHED 18:29 → ANH3MED 22:00
PROVIDERS: Internal Medicine; Admitting Provider Internal Medicine; Emergency Provider Emergency Medicine; PCP Internal Medicine; Visit Provider Physician Assistant
DX: K57.32 Diverticulitis of large intestine without perforation or abscess without bleeding (principal); I48.20 Chronic atrial fibrillation, unspecified; E87.1 Hypo-osmolality and hyponatremia; E87.6 Hypokalemia; I35.0 Nonrheumatic aortic (valve) stenosis; I10 Essential (primary) hypertension; D69.6 Thrombocytopenia, unspecified; J44.9 Chronic obstructive pulmonary disease, unspecified; E11.9 Type 2 diabetes mellitus without complications; E78.5 Hyperlipidemia, unspecified; N63.20 Unspecified lump in the left breast, unspecified quadrant; E03.9 Hypothyroidism, unspecified; M54.9 Dorsalgia, unspecified; G89.29 Other chronic pain; G25.81 Restless legs syndrome; F41.9 Anxiety disorder, unspecified; F32.A Depression, unspecified; Z20.822 Contact with and (suspected) exposure to COVID-19; Z90.710 Acquired absence of both cervix and uterus; Z90.49 Acquired absence of other specified parts of digestive tract; Z80.3 Family history of malignant neoplasm of breast
CPT/HCPCS: 36415; 71045; 74176; 80048; 80053; 81001; 82948; 83036; 83690; 83735; 84100; 84443; 85025; 85027; 85055; 93005; 94640; 96361; 96365; 96366; 96367; 96368; 99285; A9270; C9113; C9803; J0696; J0744; J1885; J3010; J3480; J7030; J7040; J7120; U0003; U0005

== ENCOUNTER 2021-10-21 17:06 | Emergency (ER) | payer MEDICARE, SELFPAY ==
[2021-10-21] VITALS (9 sets, daily range): BP systolic 80–124; BP diastolic 47–59; PULSE 59–69; RESP 16–20; TEMP 36.8; O2SAT 91–96
--- NOTE | ~2021-10-21 | XR_ITS ---
EXAMINATION: XR chest 1V portable Exam Date/Time: 10/21/2021 18:30 CDT HISTORY: cough Comparison: 10/15/2021. RESULT: Lines, tubes, and devices: None. Lungs and pleura: Persistent left hemidiaphragm elevation and left medial basilar scar/atelectasis. Senescent changes. Left upper lung granuloma. Cardiomediastinal silhouette: Stable. Other: No acute osseous or upper abdominal finding. IMPRESSION: No acute cardiopulmonary process. Reviewed, dictated and finalized at location K.
[2021-10-21 17:32] LABS: Basophils Percent Auto 0.3 % (0.2-1.2); Eosinophils Absolute Auto 0.2 K/mm3 (0-0.3); Eosinophils Percent Auto 1.9 % (0-4.4); Hematocrit 37.5 % (37.0-47.0); Hemoglobin 12.4 g/dL (12.0-15.0); Immature Granulocyte Absolute 0.03 K/mm3 (0.00-0.031); Immature Granulocyte Percent A 0.3 % (0-0.5); Lymphocytes Absolute Auto 1.09 K/mm3 (0.9-3.2); Lymphocytes Percent Auto 11.3 % (18.3-44.2); Mean Corpuscular HGB Conc 33.1 g/dl (32-36); Mean Corpuscular Volume 96.9 fl (80-100); Mean Platelet Volume 10.3 fl (7.4-10.4); Monocytes Absolute Auto 0.9 K/mm3 (0.1-0.6); Monocytes Percent Auto 9.7 % (2.6-8.5); Neutrophils Absolute Auto 7.4 K/mm3 (1.3-6.7); Neutrophils Percent Auto 76.5 % (45.5-73.1); Platelet Count Result 102 k/mm3 (150-375); Red Blood Count 3.87 M/mm3 (4.2-5.4); Red Cell Distribution Width 15.5 % (11.5-14.5); White Blood Count 9.7 K/mm3 (4.5-10.0)
[2021-10-21 17:38] LABS: Alanine Aminotransferase 16 U/L (6-35); Albumin Level 2.8 g/dL (3.5-5.1); Alkaline Phosphatase 113 U/L (38-126); Anion Gap 4 mmol/L (8-16); Aspartate Amino Transferase 39 U/L (14-36); Bilirubin,Total 1.1 mg/dL (0.2-1.3); Blood Urea Nitrogen 10 mg/dL (7-17); Calcium 8.2 mg/dL (8.4-10.2); Carbon Dioxide 32 mmol/L (22-30); Chloride 98 mmol/L (98-107); Estimated Glomerular Filt Rate 60; Glucose 79 mg/dL (65-110); Potassium 3.1 mmol/L (3.4-5.0); Sodium 134 mmol/L (137-145)
[2021-10-21 17:41] LABS: INR 1.5; Prothrombin Time 17.5 Seconds (11.1-14.7)
[2021-10-21 17:42] LABS: Partial Thromboplastin Time 32.6 SECONDS (22.3-36.8)
[2021-10-21 19:07] LABS: SARS-CoV-2 RNA PCR Negative
--- NOTE | 2021-10-21 19:36 | PC.NURSE ---
Assumed care of patient in room 7. Vitals stable at this time. Pt resting upright in stretcher with call light in reach and family at bedside.
--- NOTE | 2021-10-21 19:52 | PC.NURSE ---
Per EDP confirm type and screen blood draw (lav tube) collection canceled. h/h= 12.4/37.5
--- NOTE | 2021-10-21 20:08 | ED.GIBLEED ---
HPI - GI Bleed General Chief complaint: GI Bleed Stated complaint: fever Time Seen by Provider: 10/21/21 17:55 History of Present Illness HPI Narrative: Patient is an 81-year-old female who presents ER with 2 concerns. First is fever and the second is blood in stool. She reports her stool has been black for the last 3 days. Patient recently hospitalized for diverticulitis. She was discharged with prescriptions for Cipro and Flagyl but the pharmacy would not fill her ciprofloxacin due to concern for QT prolongation with her citalopram. Denies increased abdominal pain or rectal pain. Occasional loose stools. No bright red blood. Related Data Home Medications Medication Instructions Recorded Confirmed albuterol sulfate 2.5 mg/3 mL 2.5 mg inhalation Q6H PRN Wheezing 07/18/20 10/15/21 (0.083 %) solution for nebulization atorvastatin 10 mg tablet 10 mg PO DAILY 07/18/20 10/15/21 citalopram 40 mg tablet 40 mg PO DAILY 07/18/20 10/15/21 furosemide 40 mg tablet 40 mg PO BID 07/18/20 10/15/21 budesonide-formoterol HFA 80 2 puff inhalation Q12H 07/19/20 10/15/21 mcg-4.5 mcg/actuation aerosol inhaler (Symbicort) calcium carbonate 600 mg-vitamin 1 tablet PO DAILY 07/19/20 10/15/21 D3 5 mcg (200 unit) tablet ferrous sulfate 325 mg (65 mg 325 mg PO DAILY 07/19/20 10/15/21 iron) tablet levothyroxine 125 mcg capsule 125 mcg PO DAILY 07/19/20 10/15/21 metoprolol tartrate 25 mg tablet 25 mg PO BID 07/19/20 10/15/21 omeprazole 40 mg capsule,delayed 40 mg PO DAILY 07/19/20 10/15/21 release potassium chloride 20 mEq 10 meq PO DAILY 07/19/20 10/15/21 tablet,extended release oxycodone 5 mg tablet 5 mg 10/21/21 Allergies Allergy/AdvReac Type Severity Reaction Status Date / Time metoclopramide Allergy Unknown Unknown Verified 10/15/21 18:29 Iodinated Contrast Media Allergy Hives Verified 10/15/21 18:29 raloxifene [From Evista] Allergy Unknown Verified 08/16/22 18:29 sulfamethoxazole Allergy Unknown Verified 10/15/21 18:29 [From Bactrim] trimethoprim [From Bactrim] Allergy Unknown Verified 10/15/21 18:29 codeine AdvReac Unknown Nausea Verified 10/15/21 18:29 Review of Systems Review of Systems: All systems reviewed & are unremarkable except as noted in HPI and below Constitutional: Constitutional: Denies chills, Reports fatigue and Reports fever(s) ENT: Denies nasal congestion and Denies sore throat Cardiovascular: Cardiovascular: Denies chest pain and Denies rapid heart rate Respiratory: Respiratory: Denies cough, Denies dyspnea and Denies wheezing Gastrointestinal: Gastrointestinal: Denies abdominal pain, Reports diarrhea, Denies nausea and Denies vomiting Comments: Rectal bleeding Genitourinary: Genitourinary: Denies nocturia and Denies dysuria PMFSH Past Medical History Medical History (Updated 10/21/21 @ 20:33 by Fer Navarro MD) Anxiety and depression Aortic stenosis Asthma-COPD overlap syndrome Atrial fibrillation Chronic pain Diabetes mellitus Hyperlipidemia Hypertension Hypothyroidism Restless legs syndrome (RLS) Surgical History Surgical History H/O: hysterectomy History of orthopedic surgery Hx of appendectomy Hx of cholecystectomy Hx of tonsillectomy Family History Family History (Updated 10/15/21 @ 21:28 by Gary Carcamo RN) Father Malignant tumor of colon Heart disease Cerebrovascular accident Mother Diabetes mellitus Heart disease Sibling Breast cancer Social History Social History Smoking status: Never smoker Second hand tobacco smoke exposure: No Alcohol intake: never Substance use: never Spiritual care concerns: No Exam Narrative: GENERAL: Well-appearing, well-nourished, and in no acute distress. HEAD: Normocephalic, atraumatic. EYES: PERRL and EOMI. CHEST: Clear to auscultation. No respiratory distress. HEART: Regular
== END 2021-10-21 20:52 | disposition home or self-care (01) ==
PROVIDERS: Emergency Medicine; Emergency Provider Emergency Medicine; PCP Internal Medicine
DX: K92.2 Gastrointestinal hemorrhage, unspecified (principal); Z20.822 Contact with and (suspected) exposure to COVID-19; I48.91 Unspecified atrial fibrillation; J44.9 Chronic obstructive pulmonary disease, unspecified; E11.9 Type 2 diabetes mellitus without complications; I10 Essential (primary) hypertension; E78.5 Hyperlipidemia, unspecified; E03.9 Hypothyroidism, unspecified; I35.0 Nonrheumatic aortic (valve) stenosis; F41.9 Anxiety disorder, unspecified; F32.9 Major depressive disorder, single episode, unspecified; G25.81 Restless legs syndrome; Z90.710 Acquired absence of both cervix and uterus
CPT/HCPCS: 36415; 71045; 80053; 85025; 85055; 85610; 85730; 86850; 86880; 86900; 86901; 86902; 99283; C9803; U0003; U0005

== ENCOUNTER 2021-10-30 01:08 | Inpatient (IN) | payer MEDICARE, SELFPAY ==
[2021-10-30] VITALS (26 sets, daily range): BP systolic 88–113; BP diastolic 41–74; PULSE 66–154; RESP 11–23; TEMP 36.3–37.9; O2SAT 94–100; BMI 28.9
--- NOTE | ~2021-10-30 | XR_ITS ---
EXAMINATION: XR chest PICC line Exam Date/Time: 11/02/2021 17:02 CDT HISTORY: PICC line placement Comparison: 2 days prior. RESULT: Lines, tubes, and devices: Left upper extremity PICC terminating in the SVC, tip possibly directed t owards the azygos vein. Lungs and pleura: Significantly worsening perihilar and upper lobe airspace disease. Cardiomediastinal silhouette: Stable. Other: No acute osseous or upper abdominal finding. IMPRESSION: Left upper extremity PICC, in good position. Significantly worsening pulmonary opacities may reflect worsening infection and/or worsening pulmonary edema. Reviewed, dictated and finalized at location K.
--- NOTE | ~2021-10-30 | CT_ITS ---
EXAMINATION: CT abdomen pelvis wo con DATE: 10/30/2021 01:54 INDICATION: Nausea and vomiting. Blood in stool. Diarrhea. TECHNIQUE: Computed tomography (CT) of the abdomen and pelvis was performed without intravenous contr ast. Automated exposure control and iterative reconstruction technique were employed. The dose-length product was 1005.17 mGy-cm. COMPARISON: CT abdomen and pelvis 10/15/2021 FINDINGS: The visualized portions of the lung bases demonstrate mild atelectasis. There are small ple ural effusions. There is left atrial and left ventricular enlargement of the heart. There are calcifi cations of the coronary arteries and aortic valve. No pericardial effusion. The liver demonstrates a nodular surface contour, consistent with cirrhosis. Calcifications in the liver and spleen are consis tent with old granulomatous disease. The gallbladder is not visualized and likely absent. The pancrea s and adrenal glands are normal. 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 There is a 12 mm cyst in left kidney. There is liquid stool in the colon correlating with the sympt om of diarrhea. There is diverticulosis of the colon without evidence of diverticulitis. The appendix is not visualized. There are no dilated loops of bowel. 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 There are no pathologically enlarged lymph nodes. There is a small volu me of ascites. There is a total right hip arthroplasty. There is internal fixation of proximal left f emur. There are multiple chronic burst fractures in the spine. There are changes of vertebroplasty at L1. IMPRESSION: 1. Small pleural effusions. 2. Cirrhosis of the liver with portal venous hypertension. 3. Small volume of ascites. Reviewed, dictated and finalized at location A.
--- NOTE | ~2021-10-30 | XR_ITS ---
EXAMINATION: XR chest 1V portable DATE: 10/31/2021 08:07 INDICATION: COVID-19 pneumonia. TECHNIQUE: A single frontal view of the chest was obtained. COMPARISON: Chest single view 10/30/2021, CT abdomen and pelvis 10/30/21 FINDINGS: The patient is rotated to her right. There is a small left pleural effusion. There are airs pace opacities at the lung bases. A calcified left lung nodule and calcified left hilar lymph nodes a re consistent with old granulomatous disease. No pneumothorax. Cardiomegaly is noted. There are hidalgo es of vertebroplasty in lumbar spine. IMPRESSION: 1. Stable airspace opacities at the lung bases, likely atelectasis. 2. Small left pleural effusion. 3. Cardiomegaly. Reviewed, dictated and finalized at location A.
--- NOTE | ~2021-10-30 | XR_ITS ---
EXAMINATION: XR chest 1V portable DATE: 10/30/2021 01:46 INDICATION: Weakness. TECHNIQUE: A single frontal view of the chest was obtained. COMPARISON: Chest single view 10/21/2021, CT abdomen and pelvis 10/30/2021 FINDINGS: The lung volumes are small. A calcified left lung nodule and calcified left hilar lymph nod es are consistent with old granulomatous disease. There is mild atelectasis at the lung bases. There are small pleural effusions. No pneumothorax. The heart size is normal. There are changes of vertebro plasty in lumbar spine. IMPRESSION: 1. Small pleural effusions. 2. Small lung volumes with mild atelectasis at the lung bases. Reviewed, dictated and finalized at location A.
--- NOTE | ~2021-10-30 | XR_ITS ---
EXAMINATION: XR chest 1V portable DATE: 11/01/2021 06:03 INDICATION: Infiltrates. Shock. TECHNIQUE: A single frontal view of the chest was obtained. COMPARISON: Chest single view 10/31/2021, CT abdomen and pelvis 10/30/2021 FINDINGS: The lung volumes are small. There are airspace opacities in right perihilar region and at l eft lung base. A calcified left lung nodule and calcified mediastinal lymph nodes are consistent with old granulomatous disease. There are small pleural effusions. No pneumothorax. Cardiomegaly is noted . There are changes of vertebroplasty in lumbar spine. IMPRESSION: 1. Small lung volumes with worsened airspace opacities in right perihilar region and at left lung bas e, consistent with atelectasis versus pneumonia. 2. Small pleural effusions. 3. Cardiomegaly. Reviewed, dictated and finalized at location A. IMPRESSION: 1. Small lung volumes with worsened airspace opacities in right perihilar regio n and at left lung base, consistent with atelectasis versus pneumonia. 2. Small pleural effusions. 3. Cardiomegaly.
--- NOTE | ~2021-10-30 | US_ITS ---
US renal BI DATE: 11/01/2021 12:28 INDICATION: Acute renal insufficiency. Evaluate for hydronephrosis. TECHNIQUE: Real-time imaging of kidneys by portable technique in the ICU COMPARISON: None FINDINGS: The examination is limited, with poor visualization of both kidneys, especially on the righ t. No apparent hydronephrosis is noted at either side. IMPRESSION: Very limited examination; no apparent hydronephrosis Reviewed, dictated and finalized at Location A. Reviewed, dictated and finalized at location B.
--- NOTE | ~2021-10-30 | XR_ITS ---
EXAMINATION: XR chest 1V portable DATE: 11/02/2021 05:22 INDICATION: Pulmonary infiltrates. Shock. TECHNIQUE: frontal view of the chest was obtained. COMPARISON: Chest radiograph dated 11/01/21 FINDINGS: Lung volumes remain small. Persistent opacities in the left perihilar region and lower lung zone. No pneumothorax or right-sided pleural effusion. Calcified nodule in the left upper lung zone consistent with old granulomatous disease. The cardiomediastinal silhouette is normal. IMPRESSION: 1. Small lung volumes with opacities in the left perihilar region and left lower lung zones which cou ld represent atelectasis, pneumonia, small left pleural effusion or some combination thereof. Reviewed, dictated and finalized at location A. IMPRESSION: 1. Small lung volumes with opacities in the left perihilar region and left lowe r lung zones which could represent atelectasis, pneumonia, small left pleural e ffusion or some combination thereof.
[2021-10-30] MEDS: MORPHINE SULFATE (*CRX) 4 MG/ML INJ 2 MG IV PUSH (01:53)
[2021-10-30] MEDS: ONDANSETRON INJ 4 MG/2 ML VIAL IV PUSH ×4 (01:53→17:52)
[2021-10-30] MEDS: SODIUM CHLORIDE 0.9% IV 1,000 ML 999 ML IV CONT (01:54)
[2021-10-30 02:13] LABS: Basophils Percent Auto 0.2 % (0.2-1.2); Eosinophils Absolute Auto 0.2 K/mm3 (0-0.3); Eosinophils Percent Auto 1.4 % (0-4.4); Hematocrit 37.2 % (37.0-47.0); Hemoglobin 12.8 g/dL (12.0-15.0); Immature Granulocyte Absolute 0.06 K/mm3 (0.00-0.031); Immature Granulocyte Percent A 0.5 % (0-0.5); Immature Platelet Fraction Pct 2.6 % (0.9-11.2); Lymphocytes Absolute Auto 0.76 K/mm3 (0.9-3.2); Lymphocytes Percent Auto 6.1 % (18.3-44.2); Mean Corpuscular HGB Conc 34.4 g/dl (32-36); Mean Corpuscular Hemoglobin 32.2 pg (26-34); Mean Corpuscular Volume 93.7 fl (80-100); Mean Platelet Volume 10.8 fl (7.4-10.4); Monocytes Absolute Auto 0.8 K/mm3 (0.1-0.6); Monocytes Percent Auto 6.3 % (2.6-8.5); Neutrophils Absolute Auto 10.7 K/mm3 (1.3-6.7); Neutrophils Percent Auto 85.5 % (45.5-73.1); Platelet Count Result 96 k/mm3 (150-375); Red Blood Count 3.97 M/mm3 (4.2-5.4); Red Cell Distribution Width 15.7 % (11.5-14.5); White Blood Count 12.5 K/mm3 (4.5-10.0)
[2021-10-30 02:20] LABS: Lactic Acid Reflex 1.3 mmol/L (0.7-2.0)
[2021-10-30 02:24] LABS: Alanine Aminotransferase 16 U/L (6-35); Albumin Level 2.7 g/dL (3.5-5.1); Alkaline Phosphatase 108 U/L (38-126); Anion Gap 7 mmol/L (8-16); Aspartate Amino Transferase 41 U/L (14-36); Bilirubin,Total 1.8 mg/dL (0.2-1.3); Blood Urea Nitrogen 9 mg/dL (7-17); Calcium 8.1 mg/dL (8.4-10.2); Carbon Dioxide 33 mmol/L (22-30); Chloride 96 mmol/L (98-107); Estimated Glomerular Filt Rate > 60; Glucose 93 mg/dL (65-110); Lipase 86 U/L (23-300); Magnesium 1.6 mg/dL (1.6-2.3); Potassium 2.7 mmol/L (3.4-5.0); Sodium 136 mmol/L (137-145)
[2021-10-30 02:29] LABS: INR 1.3; Prothrombin Time 15.9 Seconds (11.1-14.7)
[2021-10-30 02:30] LABS: Partial Thromboplastin Time 30.1 SECONDS (22.3-36.8)
--- NOTE | 2021-10-30 02:47 | ECG_ITS ---
Measurements Intervals [place] Rate: 152 P: HI: 0 QRS: -28 QRSD: 110 T: 156 QT: 268 QTc: 427 Interpretive Statements ATRIAL FIBRILLATION WITH RAPID VENTRICULAR RESPONSE BORDERLINE LEFT AXIS DEVIATION [QRS AXIS < -20] VOLTAGE CRITERIA FOR LVH [MEETS CRITERIA IN ONE OF: R(aVL), S(V1), R(V5), R(V5/V6)+S(V1)] MARKED ST DEPRESSION, CONSIDER SUBENDOCARDIAL INJURY [0.2+ mV ST DEPRESSION] COMPARED TO ECG 10/16/2021 09:25:11 ATRIAL FIBRILLATION NOW PRESENT AND ST SEGMENT DEPRESSION IS MORE PRONOUNCED. Electronically Signed On 10-30-2021 19:55:07 CDT by Fozia Anne M.D.
--- NOTE | 2021-10-30 02:47 | PC.NURSE ---
sudden onset CP and HR 156, ERP notified
--- NOTE | 2021-10-30 03:15 | PC.NURSE ---
EDP aware of soft pressure. BP currently 90/74 EDP aware and okayed to admin diltiazem bolus and drip.
[2021-10-30] MEDS: dilTIAZem HCl INJ 25 MG/5 ML VIAL 20 MG IV PUSH (03:18)
[2021-10-30] MEDS: dilTIAZem 100 MG/100 ML 100 MG/100 ML BAG IV CONT (03:24)
--- NOTE | 2021-10-30 03:54 | ED.GENADULT ---
HPI - General Adult General Chief complaint: Abdominal Pain Stated complaint: N/V, BLOODY STOOL, PAIN Time Seen by Provider: 10/30/21 01:25 History of Present Illness HPI narrative: Patient 81-year-old female who presents emergency department with chief complaint of abdominal pain and diarrhea. Patient reports that she was recently seen in the hospital and ER for diverticulitis and been treated with initially Cipro and Flagyl but then transitioned over to Augmentin due to concern for possible QT prolongation. Patient does have a remote history of A. fib and reports that she has been feeling generally weak. Patient has had a subjective fever at home and has been mildly tachycardic at home. Patient states the pain in her abdomen is not improved by anything nor is it worsened by anything. The patient also upon arrival to the emergency department had an episode where her heart rate jumped up to the 150s in A. fib with RVR. Related Data Home Medications Medication Instructions Recorded Confirmed albuterol sulfate 2.5 mg/3 mL 2.5 mg inhalation Q6H PRN Wheezing 07/18/20 10/15/21 (0.083 %) solution for nebulization atorvastatin 10 mg tablet 10 mg PO DAILY 07/18/20 10/15/21 citalopram 40 mg tablet 40 mg PO DAILY 07/18/20 10/15/21 furosemide 40 mg tablet 40 mg PO BID 07/18/20 10/15/21 budesonide-formoterol HFA 80 2 puff inhalation Q12H 07/19/20 10/15/21 mcg-4.5 mcg/actuation aerosol inhaler (Symbicort) calcium carbonate 600 mg-vitamin 1 tablet PO DAILY 07/19/20 10/15/21 D3 5 mcg (200 unit) tablet ferrous sulfate 325 mg (65 mg 325 mg PO DAILY 07/19/20 10/15/21 iron) tablet levothyroxine 125 mcg capsule 125 mcg PO DAILY 07/19/20 10/15/21 metoprolol tartrate 25 mg tablet 25 mg PO BID 07/19/20 10/15/21 omeprazole 40 mg capsule,delayed 40 mg PO DAILY 07/19/20 10/15/21 release potassium chloride 20 mEq 10 meq PO DAILY 07/19/20 10/15/21 tablet,extended release oxycodone 5 mg tablet 5 mg 10/21/21 Allergies Allergy/AdvReac Type Severity Reaction Status Date / Time metoclopramide Allergy Unknown Unknown Verified 10/15/21 18:29 Iodinated Contrast Media Allergy Hives Verified 10/15/21 18:29 raloxifene [From Evista] Allergy Unknown Verified 10/15/21 18:29 sulfamethoxazole Allergy Unknown Verified 10/15/21 18:29 [From Bactrim] trimethoprim [From Bactrim] Allergy Unknown Verified 10/15/21 18:29 codeine AdvReac Unknown Nausea Verified 10/15/21 18:29 Review of Systems Review of Systems: A 10 system review of systems was completed on the patient and is negative except for what is stated in the HPI. Nursing and ancillary documentation was reviewed. [facility] Past Medical History Medical History Anxiety and depression Aortic stenosis Asthma-COPD overlap syndrome Atrial fibrillation Chronic pain Diabetes mellitus Hyperlipidemia Hypertension Hypothyroidism Restless legs syndrome (RLS) Surgical History Surgical History H/O: hysterectomy History of orthopedic surgery Hx of appendectomy Hx of cholecystectomy Hx of tonsillectomy Family History Family History Father Malignant tumor of colon Heart disease Cerebrovascular accident Mother Diabetes mellitus Heart disease Sibling Breast cancer Social History Social History Smoking status: Never smoker Second hand tobacco smoke exposure: No Alcohol intake: never Substance use: never Spiritual care concerns: No Exam Narrative: GENERAL: Well-appearing, well-nourished, and in no acute distress. HEAD: Normocephalic, atraumatic. EYES: PERRLA and EOMI. ENT: Nares clear, no rhinorrhea or epistaxis. Mucous membranes moist. NECK: Supple. CHEST: Clear to auscultation. No respiratory distress. HEART: Tach
[2021-10-30] MEDS: KCL 20 MEQ/SW 100 ML 100 ML 50 MEQ IVPB (05:09)
[2021-10-30 05:18] LABS: Hemoglobin 12.3 g/dL (12.0-15.0)
[2021-10-30 05:27] LABS: INR 1.4; Prothrombin Time 16.4 Seconds (11.1-14.7)
[2021-10-30 05:38] LABS: Troponin I 0.025 ng/mL (0.000-0.034)
[2021-10-30 05:48] LABS: SARS-CoV-2 RNA PCR Positive
--- NOTE | 2021-10-30 07:03 | PC.NURSE ---
Pt heart rate sitting in 70s paused diltiazem drip. EDP aware.
--- NOTE | 2021-10-30 07:12 | PC.NURSE ---
Sent urine sample with pt chart sticker. Called lab and okayed to send with chart label for UA.
[2021-10-30 07:30] LABS: Appearance Urine Clear (Clear); Bilirubin Urine 1+ (Negative); Blood Urine Negative (Negative); Glucose Urine UA Negative (Negative); Ketones Urine 1+ mg/dL (Negative); Leukocyte Esterase Ur Negative LEU/UL (Negative); Nitrate Urine Negative (Negative); Protein Urine 1+ mg/dL (Negative); Urobilinogen Urine 0.2 mg/dL (<2.0)
[2021-10-30 07:31] LABS: Add Urine Microscopic? YES; Color Urine Dark Yellow (Yellow)
[2021-10-30 07:42] LABS: Hyaline Casts Urine 50+ /lpf; Mucus Urine Rare /lpf; Squamous Epithelial Cell Urine Rare /hpf (Few); WBC Urine 0-3 /hpf
[2021-10-30 08:16] LABS: Troponin I 0.047 ng/mL (0.000-0.034)
--- NOTE | 2021-10-30 09:20 | ADMGEN ---
This patient, Tammy Mccracken, was admitted to Intensive Care Unit-7 on 10/30/21 at 0650. Patient/family oriented to hospital policies and general routines including ID bracelet, bed and alarms, visiting hours, pain management, procedures, bathroom and other care routines, personal items, smoking policy, room service/diet, and visiting hours. Information on how to activate the Rapid Response Team has been discussed. Patient/Family are encouraged to report perceived risks to care and to ask questions if they do not understand what they are told or what they should do.
[2021-10-30 10:53] LABS: Hematocrit 39.6 % (37.0-47.0); Hemoglobin 12.9 g/dL (12.0-15.0)
[2021-10-30 11:05] LABS: Anion Gap 9 mmol/L (8-16); Blood Urea Nitrogen 12 mg/dL (7-17); Calcium 8.2 mg/dL (8.4-10.2); Carbon Dioxide 31 mmol/L (22-30); Chloride 98 mmol/L (98-107); Estimated Glomerular Filt Rate 53; Glucose 88 mg/dL (65-110); Magnesium 1.7 mg/dL (1.6-2.3); Potassium 2.9 mmol/L (3.4-5.0); Sodium 138 mmol/L (137-145)
[2021-10-30 11:20] LABS: Troponin I 0.056 ng/mL (0.000-0.034)
[2021-10-30] MEDS: SODIUM CHLORIDE 0.9% IV 1,000 ML 75 ML IV CONT (13:48)
--- NOTE | 2021-10-30 15:17 | PC.NURSE ---
SHERRY Oneill has granted Maria Esther Uribe ([phone]) to be the point of contact for Greta Mccracken. Please contact Maria Esther and she will disperse information to the other family members
[2021-10-30 16:19] LABS: Hematocrit 39.4 % (37.0-47.0); Hemoglobin 12.7 g/dL (12.0-15.0)
--- NOTE | 2021-10-30 17:10 | ECG_ITS ---
Measurements Intervals [place] Rate: 78 P: 21 SC: 146 QRS: -14 QRSD: 112 T: 80 QT: 408 QTc: 467 Interpretive Statements SINUS RHYTHM INTRAVENTRICULAR CONDUCTION DELAY DELAYED PRECORDIAL R/S TRANSITION LEFT VENTRICULAR HYPERTROPHY AND ST-T CHANGE BORDERLINE ST-T WAVE ABNORMALITY- ANTEROLAT/INF LEADS BORDERLINE ECG COMPARED TO ECG 10/30/2021 02:55:09 SINUS RHYTHM NOW PRESENT Electronically Signed On 10-31-2021 6:37:52 CDT by Jose Gomes D.O.
[2021-10-30] MEDS: POTASSIUM CHLORIDE INJ 40 MEQ in SODIUM CHLORIDE 0.9% IV 500 ML 130 MEQ IVPB (17:51)
[2021-10-30] MEDS: BRINZOLAMIDE 1% OPHTH SUSP 10 ML 1 DROP RIGHT EYE ×2 (17:54→20:20)
[2021-10-30] MEDS: BRIMONIDINE TARTRATE 0.15% 5 ML OPHTH SOLN 1 DROP EACH EYE (17:55)
--- NOTE | 2021-10-30 17:58 | PM.IMHP ---
H&P: HPI History of Present Illness Date/Time: 10/30/21 17:58 Chief Complaint: Abdominal pain and diarrhea Narrative: ED-HPI narrative: Patient 81-year-old female who presents emergency department with chief complaint of abdominal pain and diarrhea.? Patient reports that she was recently seen in the hospital and ER for diverticulitis and been treated with initially Cipro and Flagyl but then transitioned over to Augmentin due to concern for possible QT prolongation.? Patient does have a remote history of A. fib and reports that she has been feeling generally weak.? Patient has had a subjective fever at home and has been mildly tachycardic at home.? Patient states the pain in her abdomen is not improved by anything nor is it worsened by anything.? The patient also upon arrival to the emergency department had an episode where her heart rate jumped up to the 150s in A. fib with RVR. Currently patient is quite somnolent unable to provide any detailed review of symptom most history is recorded from electronic chart and an ER records, upon arrival patient developed atrial fibrillation with RVR and was placed on diltiazem drip patient converted to sinus rhythm and placed on metoprolol [address] scan of abdomen essentially normal not show any colitis, patient is also found to have COVID-19, is an incidental finding however patient is requiring oxygen will start the patient on dexamethasone and remdesivir, also patient is unable to provide detailed review of symptoms and history not sure he chadscore will give lovenox 1mg/kg x1 and reassess in the morning. Review of Systems Review of Systems: ROS unobtainable: Yes unobtainable due to medical condition PMFSH Past Medical History Medical History Anxiety and depression Aortic stenosis Asthma-COPD overlap syndrome Atrial fibrillation Chronic pain Diabetes mellitus Hyperlipidemia Hypertension Hypothyroidism Restless legs syndrome (RLS) Surgical History Surgical History H/O: hysterectomy History of orthopedic surgery Hx of appendectomy Hx of cholecystectomy Hx of tonsillectomy Family History Family History Father Malignant tumor of colon Heart disease Cerebrovascular accident Mother Diabetes mellitus Heart disease Sibling Breast cancer Social History Social History Smoking status: Never smoker Second hand tobacco smoke exposure: No Alcohol intake: never Substance use: never Substance use type: does not use Spiritual care concerns: No Meds Home Medications and Allergies Home Medications Medication Instructions Recorded Confirmed Type albuterol sulfate 2.5 mg/3 mL 2.5 mg inhalation Q6H PRN Wheezing 07/18/20 10/30/21 History (0.083 %) solution for nebulization atorvastatin 10 mg tablet 10 mg PO HS 07/18/20 10/30/21 History citalopram 40 mg tablet 40 mg PO DAILY 07/18/20 10/30/21 History furosemide 40 mg tablet 40 mg PO BID 07/18/20 10/30/21 History budesonide-formoterol HFA 80 2 puff inhalation Q12H 07/19/20 10/30/21 History mcg-4.5 mcg/actuation aerosol inhaler (Symbicort) calcium carbonate 600 mg-vitamin 1 tablet PO DAILY 07/19/20 10/30/21 History D3 5 mcg (200 unit) tablet ferrous sulfate 325 mg (65 mg 325 mg PO DAILY 07/19/20 10/30/21 History iron) tablet levothyroxine 125 mcg capsule 125 mcg PO DAILY 07/19/20 10/30/21 History metoprolol tartrate 25 mg tablet 25 mg PO BID 07/19/20 10/30/21 History omeprazole 40 mg capsule,delayed 40 mg PO DAILY 07/19/20 10/30/21 History release potassium chloride 20 mEq 10 meq PO DAILY 07/19/20 10/30/21 History tablet,extended release brimonidine 0.15 % eye drops 1 drp EACH EYE BID 10/30/21 10/30/21 History brinzolamide 1 % eye 1 drp CAROL ANN
[2021-10-30 19:30] LABS: INR 1.5; Prothrombin Time 17.5 Seconds (11.1-14.7)
[2021-10-30] MEDS: PROMETHAZINE HCL 25 MG/ML AMPUL 12.5 MG IV PUSH (20:21)
[2021-10-30] MEDS: REMDESIVIR 200 MG/NS 250 ML 200 MG/250 ML BAG 250 MG IVPB (21:11)
[2021-10-30] MEDS: ATORVASTATIN 10 MG TABLET PO (21:12)
[2021-10-30] MEDS: DEXAMETHASONE 2 MG TABLET 6 MG PO (21:12)
--- NOTE | 2021-10-30 23:34 | ECG_ITS ---
Measurements Intervals [place] Rate: 155 P: AL: 0 QRS: -26 QRSD: 106 T: 157 QT: 282 QTc: 453 Interpretive Statements ATRIAL FIBRILLATION WITH RAPID VENTRICULAR RESPONSE LEFT VENTRICULAR HYPERTROPHY WITH ST-T CHANGE BORDERLINE ST-T WAVE ABNORMALITY- ANTEROLATERAL LEADS BASELINE ARTIFACT- V1-V2 ABNORMAL ECG COMPARED TO ECG 10/30/2021 16:43:40 ATRIAL FIBRILLATION NOW PRESENT Electronically Signed On 10-31-2021 7:59:02 CDT by Jose Gomes D.O.
[2021-10-31] VITALS (52 sets, daily range): BP systolic 56–117; BP diastolic 35–98; PULSE 66–184; RESP 14–30; TEMP 35.9–37.6; O2SAT 93–100; BMI 32.1
--- NOTE | 2021-10-31 | ECHO_ITS ---
Patient Info Name: Tammy Mccracken Age: 81 years : 1940 Gender: Female Ht: 59 in Wt: 153 lbs BSA: 1.73 m2 HR: 78 bpm BP: 105 / 67 mmHg Heart Rhythm: Atrial Fibrillation Technical Quality: Fair Exam Date: 10/31/2021 2:29 PM Exam Location: [facility] Pulmonary Exam Room: ICU 7 Patient Status: Inpatient Admit Date: 10/30/2021 Staff Ordering Physician: Alta Gaines MD Factory Maintenance Manager: Dipika Reyna RDCS Attending Provider: Tania Padilla MD Referring Physician: Liana PÉREZ; Exam Type: CA echo doppler color flow Study Info Indications - HOCK WIDE COMPLEX TACHYCARDIA HX/O AV STENOSIS Complete two-dimensional, color flow and Doppler transthoracic echocardiogram is performed. Summary 1. Complete two-dimensional, color flow and Doppler transthoracic echocardiogram is performed. 2. Normal left ventricular size with at least mild concentric hypertrophy. Good systolic function of all segments with no segmental wall motion abnormalities. Ejection fraction is 67%. Diastolic dysfunction is present. 3. Mild right ventricular enlargement with normal right ventricular function. 4. Left atrial chamber dimension is severely enlarged. 5. Right atrial chamber dimension is mildly enlarged. 6. Severe aortic valve calcification. There is severe aortic valve stenosis with a peak velocity of 3.9 m/sec,, mean gradient of 39 mmHg, and aortic valve area of 0.9 cm2. 7. There is mild mitral valve regurgitation. The leaflets are thickened and there is mitral annular calcification. 8. There is mild to moderate tricuspid valve regurgitation. 9. Moderate pulmonary hypertension, estimated pulmonary arterial systolic pressure is 59 mmHg. 10. Aortic root calcification. 11. Atrial fibrillation. 12. Consider referral for residential driver if clinically appropriate. Left Ventricle Left ventricular chamber dimension is normal. Left ventricular systolic function is normal, estimated at 60-65%. There is mildly increased left ventricular wall thickness. Left ventricular septal wall motion is normal. The left ventricular diastolic function is abnormal. Right Ventricle Right ventricular chamber dimension is mildly enlarged. Right ventricular systolic function is normal. Left Atria Left atrial chamber dimension is severely enlarged. Right Atria Right atrial chamber dimension is mildly enlarged. Aortic Valve The aortic valve is trileaflet. There is no aortic valve sclerosis. Severe aortic valve calcification. There is severe aortic valve stenosis with a peak velocity of 3.9 m/sec,, mean gradient of 39 mmHg, and aortic valve area of 0.9 cm2. There is no aortic valve regurgitation. There is severe aortic valve calcification. Pulmonic Valve The pulmonic valve is normal. There is no pulmonic valve stenosis. There is trace pulmonic regurgitation. Mitral Valve The mitral valve has thickened leaflets. There is no mitral valve stenosis. There is mild mitral valve regurgitation. The leaflets are thickened and there is mitral annular calcification. The mitral valve annulus is moderately calcified. Tricuspid Valve The tricuspid valve leaflets are normal. There is no significant tricuspid valve stenosis. There is mild to moderate tricuspid valve regurgitation. Moderate pulmonary hypertension, estimated pulmonary arterial systolic pressure is 59 mmHg. Pericardium/Pleural The pericardium appears normal. There is no pericardial effusion. Inferior Vena Cava Not
[2021-10-31] MEDS: SODIUM CHLORIDE 0.9% IV 1,000 ML 100 ML IV CONT ×3 (00:15→14:46)
[2021-10-31 00:26] LABS: Anion Gap 3 mmol/L (8-16); Blood Urea Nitrogen 16 mg/dL (7-17); Calcium 7.5 mg/dL (8.4-10.2); Carbon Dioxide 28 mmol/L (22-30); Chloride 103 mmol/L (98-107); Estimated Glomerular Filt Rate 36; Glucose 62 mg/dL (65-110); Potassium 3.7 mmol/L (3.4-5.0); Sodium 134 mmol/L (137-145)
--- NOTE | 2021-10-31 00:33 | ECG_ITS ---
Measurements Intervals [place] Rate: 124 P: [place]: 0 QRS: -24 QRSD: 106 T: 145 QT: 278 QTc: 400 Interpretive Statements ATRIAL FIBRILLATION WITH RAPID VENTRICULAR RESPONSE DELAYED PRECORDIAL R/S TRANSITION LEFT VENTRICULAR HYPERTROPHY WITH ST-T CHANGE ST-T WAVE ABNORMALITY IN ANTEROLAT/HIGH LAT LEADS- CONSIDER ISCHEMIA BASELINE WANDER- I, II, AVR, AVL, AVF ABNORMAL ECG COMPARED TO ECG 10/30/2021 16:43:40 ATRIAL FIBRILLATION AND SIGNIFICANT ST-T WAVE ABNORMALITY NOW PRESENT Electronically Signed On 10-31-2021 6:43:15 CDT by Jose Gomes D.O.
[2021-10-31 00:52] LABS: Magnesium 1.5 mg/dL (1.6-2.3)
[2021-10-31] MEDS: MAGNESIUM SULF 2 GM/WATER 50ML 2 GM/50 ML BAG IVPB (00:53)
[2021-10-31] MEDS: AMIODARONE 150 MG/D5W 100 ML 150 MG/100 ML BAG 600 MG IV CONT ×2 (00:54→01:07)
--- NOTE | 2021-10-31 01:02 | ECG_ITS ---
Measurements Intervals [place] Rate: 75 P: 21 [place]: 147 QRS: -15 QRSD: 113 T: 51 QT: 446 QTc: 501 Interpretive Statements SINUS RHYTHM INTRAVENTRICULAR CONDUCTION DELAY LEFT VENTRICULAR HYPERTROPHY AND ST-T CHANGE BORDERLINE ST-T WAVE ABNORMALITY- ANTERIOR LEADS BASELINE ARTIFACT- V1, V3, V6 BORDERLINE ECG COMPARED TO ECG 10/31/2021 00:03:56 SINUS RHYTHM NOW PRESENT AND SIGNIFICANT ST-T WAVE ABNORMALITY RESOLVED Electronically Signed On 10-31-2021 6:45:13 CDT by Jose Gomes D.O.
[2021-10-31] MEDS: MIDAZOLAM HCL (*CRX) 2 MG/2 ML VIAL IV PUSH (01:03)
[2021-10-31] MEDS: AMIODARONE 360 MG/D5W 200 ML 360 MG/200 ML BAG 33.33 MG IV CONT (01:06)
--- NOTE | 2021-10-31 01:46 | PCRCNOTE ---
patient was too sedated to properly use mdi at this time per RN
--- NOTE | 2021-10-31 02:41 | PC.NURSE ---
0033 patient in AFIB RVR 180's. Dr. Romero called to bedside. Patient was given 1L NS bolus as patient became hypotensive. Follow by 150mg Amiodarone bolus. Patient Also receiving 2gm Mag sulfate IV. Patient becoming more hypotensive and drowsy. Dr. Romero and Dr. Navarro in attendance as well as respiratory. Timeout preformed. 0103 2mg IV Versed x1 given for cardioversion. Patient shocked via Synchronized Cardioversion at 100 joules. Patient had some relief at a lower rate. Patient given second Amiodarone bolus. 0133 patient now in SR. EKG taken. Dr. Gaines consulted. Okay to start Neosynephrine through PIV if hypotension persists.
[2021-10-31 04:28] LABS: Hematocrit 37.6 % (37.0-47.0); Hemoglobin 12.3 g/dL (12.0-15.0); Mean Corpuscular HGB Conc 32.7 g/dl (32-36); Mean Corpuscular Hemoglobin 32.2 pg (26-34); Mean Corpuscular Volume 98.4 fl (80-100); Mean Platelet Volume 10.7 fl (7.4-10.4); Platelet Count Result 95 k/mm3 (150-375); Red Blood Count 3.82 M/mm3 (4.2-5.4); Red Cell Distribution Width 16.4 % (11.5-14.5); White Blood Count 21.5 K/mm3 (4.5-10.0)
[2021-10-31 04:37] LABS: INR 1.5; Prothrombin Time 17.3 Seconds (11.1-14.7)
[2021-10-31 04:41] LABS: Alanine Aminotransferase 18 U/L (6-35); Anion Gap 3 mmol/L (8-16); Blood Urea Nitrogen 17 mg/dL (7-17); Calcium 7.1 mg/dL (8.4-10.2); Carbon Dioxide 24 mmol/L (22-30); Chloride 105 mmol/L (98-107); Estimated Glomerular Filt Rate 33; Glucose 106 mg/dL (65-110); Lactic Acid Reflex 2.2 mmol/L (0.7-2.0); Magnesium 2.1 mg/dL (1.6-2.3); Potassium 3.3 mmol/L (3.4-5.0); Sodium 132 mmol/L (137-145)
[2021-10-31 04:42] LABS: Alanine Aminotransferase 18 U/L (6-35); Albumin Level 2.6 g/dL (3.5-5.1); Alkaline Phosphatase 98 U/L (38-126); Anion Gap 3 mmol/L (8-16); Aspartate Amino Transferase 39 U/L (14-36); Bilirubin,Total 0.9 mg/dL (0.2-1.3); Blood Urea Nitrogen 17 mg/dL (7-17); Carbon Dioxide 25 mmol/L (22-30); Chloride 104 mmol/L (98-107); Estimated Glomerular Filt Rate 33; Glucose 105 mg/dL (65-110); Potassium 3.2 mmol/L (3.4-5.0); Sodium 132 mmol/L (137-145)
--- NOTE | 2021-10-31 04:43 | P.PNCROSS_ITS ---
Event Note Event Note Event Note: Called that patient's HR was >180, wide QRS concerning for vtach. Amiodarone 150 mg ordered x 2, sync cardioversion performed x 1, NS bolus ordered, mag sulfate 2g ordered, BMP pending. Patient initially hyppotensive with systolic in the 50- 60s. VS improved to HR 110s and BP 90s/60s. Will continue amiodarone drip overnight, restart home meds in the morning and wean off drip.
[2021-10-31] MEDS: POTASSIUM CHLORIDE INJ 40 MEQ in SODIUM CHLORIDE 0.9% IV 500 ML 130 MEQ IVPB (06:04)
[2021-10-31] MEDS: BRINZOLAMIDE 1% OPHTH SUSP 10 ML 1 DROP RIGHT EYE ×3 (06:04→21:11)
[2021-10-31] MEDS: MAGNESIUM SULF 1 GM/D5W 100 ML 1 GM/100 ML BAG IVPB (06:04)
[2021-10-31] MEDS: AMIODARONE 360 MG/D5W 200 ML 360 MG/200 ML BAG 16.67 MG IV CONT ×2 (06:04→18:30)
[2021-10-31 07:22] LABS: Reflex Lactic Acid Yes or No Add Lactic
[2021-10-31 08:18] LABS: Lactic Acid 2.3 mmol/L (0.7-2.0)
[2021-10-31] MEDS: LEVALBUTEROL NEB 1.25 MG/3 ML 0.63 MG INHALATION ×3 (08:23→20:45)
[2021-10-31] MEDS: FLUTICASONE/SALMETEROL 45-21 MCG (*SP) INHALER 2 PUFF INHALATION ×2 (08:23→20:45)
[2021-10-31] MEDS: IPRATROPIUM BR 0.02% INH SOLN 0.5 MG/2.5 ML VIAL INHALATION ×3 (08:23→20:45)
[2021-10-31] MEDS: KCL 40 MEQ/WATER 100 ML 100 ML 25 ML IVPB (08:36)
--- NOTE | 2021-10-31 09:02 | WPDPROCEDUR ---
Procedures Central Line Placement Left Femoral: Central Line Date: 10/31/21 Central Line Time: 08:52 Discussed w/ the patient/family/POA,the placement of a central venous catheter, including its clinical necessity/indication & associated potential risks, benifits and alternatives.: Yes The patient/family/POA understand(s) and acknowledge(s) the need to proceed with central venous catheter insertion as an important element of the patient's clinical management.: Yes Consent: I have discussed with the patient and/or surrogate, the non-emergent placement of a central venous catheter, including its clinical necessity/indication and associated potential risks and complications. The patient and/or surrogate understand(s) and acknowledge(s) the need to proceed with central venous catheter insertion as an important element of the patient's clinical management. Time Out Performed: Yes Patient Position: supine Patient placed on monitor/pulse ox: Yes Provider Prep: mask, sterile gown, sterile gloves, Max. sterile barrier precautions, cap and hand hygiene with conventional soap/water or alcohol based hand rub Central line prep: 2% Chlorhexidine scrub Local anesthesia used: lidocaine 1% Amount of anesthesia used (ml): 3 Sterile US Technique with sterile gel/sterile probe covers: Yes Central line lumen inserted: triple Panamanian: 12 Length (cm): 16 Depth of Insertion (cm): 16 Post Procedure: sutured in place, good blood return, all ports aspirated, flushed, capped, transparent dressing, hemostatic product, antimicrobial product, securement product and aseptic technique maintained throughout procedure Post procedure x-ray: other (N/A) Patient tolerated procedure: well Complications: none
[2021-10-31] MEDS: hetaSTARCH 6%/NACL 500 ML 250 ML IV CONT (09:03)
[2021-10-31] MEDS: BRIMONIDINE TARTRATE 0.15% 5 ML OPHTH SOLN 1 DROP EACH EYE ×2 (09:04→17:00)
[2021-10-31] MEDS: LEVOTHYROXINE SODIUM 125 MCG TABLET PO (09:06)
[2021-10-31] MEDS: CITALOPRAM HYDROBROMIDE 20 MG TABLET 40 MG PO (09:06)
[2021-10-31] MEDS: FERROUS SULFATE 324 MG TABLET PO (09:06)
[2021-10-31] MEDS: PANTOPRAZOLE 40 MG TABLET PO ×2 (09:07→17:00)
[2021-10-31] MEDS: POTASSIUM CHLORIDE 10 MEQ TABLET PO (09:08)
--- NOTE | 2021-10-31 09:16 | WPDCNINT ---
Assessment and Plan Assessment and plan (1) Shock: Code(s): R57.9 - Shock, unspecified Status: Acute Assessment and Plan: Hypotension could multifactorial: Secondary to Hypovolemia due to diarrhea, nausea, vomiting, could be related to AFib RVR, wide complex tachycardia, amiodarone -patient currently hypotensive, on Jaleel-Synephrine via peripheral IV line -left femoral central line was inserted early this morning -will continue Jaleel-Synephrine and target mean arterial pressures > 65 mmHg -will give additional IV fluids -check fluid responsiveness with NICOM/cheetah, and after given more IV fluids if he has a fluid responding -decreased urine output, increasing creatinine -continue maintenance IV fluids -monitor urine output -elevated white count, lactic acid of 2.2, will repeat lactic acid level (2) Atrial fibrillation with rapid ventricular response: Code(s): I48.91 - Unspecified atrial fibrillation Status: Acute Assessment and Plan: Patient has a history of AFib, overnight on 10/30 went into AFib RVR, was bolused with amiodarone 150 mg x 2, cardioverted x1 due to hypotension and hemodynamic instability, converted to sinus rhythm -remains in sinus rhythm on this time with hypotension requiring Jaleel-Synephrine -not a candidate for anticoagulation as she presented with blood in stool, hemoglobin currently is stable (3) Abdominal pain: Qualifiers: Abdominal location: generalized Qualified Code(s): R10.84 - Generalized abdominal pain Code(s): R10.9 - Unspecified abdominal pain Status: Acute Assessment and Plan: Complained of abdominal pain on admission along with nausea, vomiting and diarrhea. -10/30/2021 CT scan of the abdomen and pelvis without contrast showed small pleural effusions, cirrhosis of the liver bed with venous hypertension, small volume ascites. Diverticulosis of colon without evidence of diverticulitis, no dilated bowel loops (4) Diarrhea: Code(s): R19.7 - Diarrhea, unspecified Status: Acute Assessment and Plan: Patient was on antibiotics for diverticulitis recently and developed diarrhea, hypovolemia/dehydration and now hypotensive in shock -will obtain stool for culture -stool WBCs smear -stool for C diff -hold all antibiotics for now (5) COVID: Code(s): U07.1 - COVID-19 Status: Acute Assessment and Plan: Patient tested positive for SARS-CoV-2 PCR on admission in the ER which was an incidental finding -denies any shortness of breath, hypoxia -patient has been started on remdesivir and dexamethasone (6) Thrombocytopenia: Code(s): D69.6 - Thrombocytopenia, unspecified Status: Acute Assessment and Plan: Likely related to cirrhosis as seen on CT scan (7) Diabetes mellitus: Code(s): E11.9 - Type 2 diabetes mellitus without complications Status: Acute (8) Asthma-COPD overlap syndrome: Code(s): J44.9 - Chronic obstructive pulmonary disease, unspecified Status: Acute Assessment and Plan: Continue bronchodilators (9) Diverticulitis large intestine: Code(s): K57.32 - Diverticulitis of large intestine without perforation or abscess without bleeding Status: Acute Assessment and Plan: Recently admitted to [facility] on 10/15/2021 to 10/17/2021 with diverticulitis of the sigmoid colon was treated with ciprofloxacin and Flagyl and was discharged home on Augmentin (10) Electrolyte imbalance: Code(s): E87.8 - Other disorders of electrolyte and fluid balance, not elsewhere classified Status: Acute Assessment and Plan: Hypokalemia, potassium being aggressively repleted (11) Cirrhosis: Code(s): K74.60 - Unspecified cirrhosis of liver Status: Acute Assessment and Plan: Possible history of cirrhosis as manifested on CT scan, -monitor for now (12) Blood in stool: Code(s): K92.1 - Melena Status: Ac
[2021-10-31] MEDS: POTASSIUM CHLORIDE 20 MEQ PACKET (FOR LIQUID) 40 MEQ PO (09:30)
[2021-10-31 10:15] LABS: IFOB Positive Control Positive; Immunochemical Fecal Occult Bl Negative (N)
[2021-10-31 10:26] LABS: Toxigenic C. Diff NEGATIVE (NEGATIVE)
[2021-10-31] MEDS: SODIUM CHLORIDE 0.9% IV 500 ML 250 ML IV CONT ×2 (11:49→16:59)
[2021-10-31] MEDS: DEXAMETHASONE 2 MG TABLET 6 MG PO (11:50)
--- NOTE | 2021-10-31 12:00 | PC.NURSE ---
Updated daughter Maria Esther on plan of care and patient condition.
[2021-10-31 12:18] LABS: Lactic Acid Reflex 2.9 mmol/L (0.7-2.0)
[2021-10-31] MEDS: CENTRAL LINE FLUSH 10 ML IV PUSH ×3 (14:46→21:07)
--- NOTE | 2021-10-31 17:21 | PC.NURSE ---
Assisted patient with calling daughter Tahira via her cell phone.
[2021-10-31] MEDS: REMDESIVIR 100 MG/NS 250 ML 100 MG/250 ML BAG 250 MG IVPB (21:09)
[2021-10-31] MEDS: ATORVASTATIN 10 MG TABLET PO (21:10)
--- NOTE | 2021-10-31 22:52 | ECG_ITS ---
Measurements Intervals [place] Rate: 119 P: [place]: 0 QRS: -15 QRSD: 109 T: 159 QT: 370 QTc: 522 Interpretive Statements ATRIAL FIBRILLATION WITH RAPID VENTRICULAR RESPONSE DELAYED PRECORDIAL R/S TRANSITION LEFT VENTRICULAR HYPERTROPHY WITH ST-T CHANGE ABNORMAL ECG COMPARED TO ECG 10/31/2021 00:36:49 ATRIAL FIBRILLATION NOW PRESENT Electronically Signed On 11-01-2021 7:50:58 CDT by Jose Gomes D.O.
[2021-11-01] VITALS (35 sets, daily range): BP systolic 84–117; BP diastolic 49–96; PULSE 69–132; RESP 18–26; TEMP 35.9–36.6; O2SAT 95–99
[2021-11-01] MEDS: AMIODARONE 150 MG/D5W 100 ML 150 MG/100 ML BAG 600 MG IV CONT (00:07)
[2021-11-01] MEDS: ONDANSETRON INJ 4 MG/2 ML VIAL IV PUSH ×2 (01:25→20:43)
[2021-11-01] MEDS: LEVALBUTEROL NEB 1.25 MG/3 ML 0.63 MG INHALATION ×4 (02:30→20:22)
[2021-11-01] MEDS: IPRATROPIUM BR 0.02% INH SOLN 0.5 MG/2.5 ML VIAL INHALATION ×4 (02:30→20:22)
[2021-11-01] MEDS: AMIODARONE 360 MG/D5W 200 ML 360 MG/200 ML BAG 33.33 MG IV CONT ×2 (03:25→09:20)
[2021-11-01] MEDS: SODIUM CHLORIDE 0.9% IV 1,000 ML 100 ML IV CONT (03:26)
[2021-11-01] MEDS: BRINZOLAMIDE 1% OPHTH SUSP 10 ML 1 DROP RIGHT EYE ×3 (05:56→19:52)
[2021-11-01] MEDS: CENTRAL LINE FLUSH 10 ML IV PUSH ×4 (05:56→19:52)
[2021-11-01] MEDS: LEVOTHYROXINE SODIUM 125 MCG TABLET PO (05:56)
[2021-11-01 06:00] LABS: Basophils Percent Auto 0.2 % (0.2-1.2); Hematocrit 35.4 % (37.0-47.0); Hemoglobin 11.6 g/dL (12.0-15.0); Immature Granulocyte Absolute 0.21 K/mm3 (0.00-0.031); Immature Granulocyte Percent A 1.2 % (0-0.5); Immature Platelet Fraction Pct 2.7 % (0.9-11.2); Lymphocytes Absolute Auto 0.36 K/mm3 (0.9-3.2); Lymphocytes Percent Auto 2.1 % (18.3-44.2); Mean Corpuscular HGB Conc 32.8 g/dl (32-36); Mean Corpuscular Hemoglobin 32.1 pg (26-34); Mean Corpuscular Volume 98.1 fl (80-100); Mean Platelet Volume 11.2 fl (7.4-10.4); Monocytes Absolute Auto 1.1 K/mm3 (0.1-0.6); Monocytes Percent Auto 6.7 % (2.6-8.5); Neutrophils Absolute Auto 15.4 K/mm3 (1.3-6.7); Neutrophils Percent Auto 89.8 % (45.5-73.1); Platelet Count Result 91 k/mm3 (150-375); Red Blood Count 3.61 M/mm3 (4.2-5.4); Red Cell Distribution Width 16.6 % (11.5-14.5); White Blood Count 17.1 K/mm3 (4.5-10.0)
[2021-11-01 06:07] LABS: INR 1.8; Prothrombin Time 20.1 Seconds (11.1-14.7)
[2021-11-01 06:08] LABS: Partial Thromboplastin Time 32.1 SECONDS (22.3-36.8)
[2021-11-01 06:09] LABS: Alanine Aminotransferase 16 U/L (6-35); Albumin Level 2.1 g/dL (3.5-5.1); Alkaline Phosphatase 83 U/L (38-126); Anion Gap 7 mmol/L (8-16); Aspartate Amino Transferase 28 U/L (14-36); Bilirubin,Total 0.5 mg/dL (0.2-1.3); Blood Urea Nitrogen 25 mg/dL (7-17); Calcium 7.3 mg/dL (8.4-10.2); Carbon Dioxide 19 mmol/L (22-30); Chloride 109 mmol/L (98-107); Estimated Glomerular Filt Rate 33; Glucose 148 mg/dL (65-110); Magnesium 2.1 mg/dL (1.6-2.3); Potassium 3.7 mmol/L (3.4-5.0); Sodium 135 mmol/L (137-145)
--- NOTE | 2021-11-01 06:16 | PC.NURSE ---
Spoke with daughter Maria Esther per patient condition, increased amiodarone rate and additional bolus given, poor urine output, and complaints of general discomfort. Pt very tired and worn out.
--- NOTE | 2021-11-01 07:13 | PC.NURSE ---
repeat cheetah performed. Pt 6.5% responsive. Fluids reduced to 50ml/hr per Karmally
[2021-11-01] MEDS: FERROUS SULFATE 324 MG TABLET PO (08:04)
[2021-11-01] MEDS: CITALOPRAM HYDROBROMIDE 20 MG TABLET 40 MG PO (08:04)
[2021-11-01] MEDS: POTASSIUM CHLORIDE 10 MEQ TABLET PO (08:04)
[2021-11-01] MEDS: PANTOPRAZOLE 40 MG TABLET PO ×2 (08:04→17:11)
[2021-11-01] MEDS: BRIMONIDINE TARTRATE 0.15% 5 ML OPHTH SOLN 1 DROP EACH EYE ×2 (08:05→17:10)
[2021-11-01] MEDS: DEXAMETHASONE 2 MG TABLET 6 MG PO (08:05)
[2021-11-01] MEDS: FLUTICASONE/SALMETEROL 45-21 MCG (*SP) INHALER 2 PUFF INHALATION ×2 (08:46→20:22)
--- NOTE | 2021-11-01 09:54 | WPDINTPN ---
Progress Note: A&P Assessment and Plan (1) Shock: Code(s): R57.9 - Shock, unspecified Status: Acute Assessment and Plan: Hypotension could multifactorial: Secondary to Hypovolemia due to diarrhea, nausea, vomiting, could be related to AFib RVR, wide complex tachycardia, amiodarone -patient currently hypotensive, on Jaleel-Synephrine via peripheral IV line -left femoral central line was inserted on 11/20/2021 -will continue Jaleel-Synephrine and target mean arterial pressures > 70 mmHg -continue maintenance IV fluids at 50 mL/hr. -decreased urine output, creatinine is been stable at 1.5 - 11/01: NICOM/cheetah overnight showed patient is not fluid responsive -white count remains elevated increased neutrophil lactic acid at 2.0 this morning -11/01 chest x-ray showed worsening airspace opacities in right perihilar region and left lung base consistent with atelectasis versus pneumonia -obtain blood and urine cultures -stool culture -started patient on cefepime, vancomycin and Flagyl (11/01) (2) Atrial fibrillation with rapid ventricular response: Code(s): I48.91 - Unspecified atrial fibrillation Status: Acute Assessment and Plan: Patient has a history of AFib, overnight on 10/30 went into AFib RVR, was bolused with amiodarone 150 mg x 2, cardioverted x1 due to hypotension and hemodynamic instability, converted to sinus rhythm -body man of 11/01 patient went into AFib RVR with heart rates in the 140-160s, in given an amiodarone bolus and amiodarone infusion was increased to 1 mg/min in conversion to sinus rhythm this morning, currently rate controlled -not a candidate for anticoagulation as she presented with blood in stool, hemoglobin currently is stable, patient also thrombocytopenic (3) Abdominal pain: Qualifiers: Abdominal location: generalized Qualified Code(s): R10.84 - Generalized abdominal pain Code(s): R10.9 - Unspecified abdominal pain Status: Acute Assessment and Plan: Complained of abdominal pain on admission along with nausea, vomiting and diarrhea. -10/30/2021 CT scan of the abdomen and pelvis without contrast showed small pleural effusions, cirrhosis of the liver bed with venous hypertension, small volume ascites. Diverticulosis of colon without evidence of diverticulitis, no dilated bowel loops (4) Diarrhea: Code(s): R19.7 - Diarrhea, unspecified Status: Acute Assessment and Plan: Patient was on antibiotics for diverticulitis recently and developed diarrhea, hypovolemia/dehydration and now hypotensive in shock -10/31 stool culture pending -10/31 WBC smear of stools was not detected -10/31 stool for C diff negative -Started on Flagyl (11/01) (5) COVID: Code(s): U07.1 - COVID-19 Status: Acute Assessment and Plan: Patient tested positive for SARS-CoV-2 PCR on admission in the ER which was an incidental finding -denies any shortness of breath, hypoxia -continue dexamethasone for 10 days -Remdesivir will be discontinued on 11/01/2021 due to renal dysfunction and decreased creatinine clearance (6) Thrombocytopenia: Code(s): D69.6 - Thrombocytopenia, unspecified Status: Acute Assessment and Plan: Could be multifactorial related to severe sepsis/septic shock, and or cirrhosis as seen on CT scan of the abdomen and pelvis (7) Diabetes mellitus: Code(s): E11.9 - Type 2 diabetes mellitus without complications Status: Acute Assessment and Plan: Continue Accu-Cheks and sliding scale insulin (8) Asthma-COPD overlap syndrome: Code(s): J44.9 - Chronic obstructive pulmonary disease, unspecified Status: Acute Assessment and Plan: Continue bronchodilators (9) Diverticulitis large intestine: Code(s): K57.32 - Diverticulitis of large intestine without perforation or abscess without bleeding Status: Acute Assessment and Plan: Recently admitted to [facility]
[2021-11-01 11:08] LABS: Creatine Kinase 67 U/L (30-135)
[2021-11-01] MEDS: BUMETANIDE INJ 1 MG/4 ML VIAL 0.5 MG IV PUSH (11:27)
[2021-11-01 11:47] LABS: Glucose Point of Care 165 mg/dl (65-105)
--- NOTE | 2021-11-01 11:51 | PM.IMPN ---
Progress Note: A&P Assessment and Plan (1) Shock: Code(s): R57.9 - Shock, unspecified Status: Acute Assessment and Plan: Hypotension could multifactorial: Secondary to Hypovolemia due to diarrhea, nausea, vomiting, could be related to AFib RVR, wide complex tachycardia, amiodarone Continue pressors Management per ICU -11/01 chest x-ray showed worsening airspace opacities in right perihilar region and left lung base consistent with atelectasis versus pneumonia -obtain blood and urine cultures -stool culture -started patient on cefepime, vancomycin and Flagyl (11/01) (2) Atrial fibrillation with rapid ventricular response: Code(s): I48.91 - Unspecified atrial fibrillation Status: Acute Assessment and Plan: Continue amiodarone. (3) Abdominal pain: Qualifiers: Abdominal location: generalized Qualified Code(s): R10.84 - Generalized abdominal pain Code(s): R10.9 - Unspecified abdominal pain Status: Acute Assessment and Plan: Complained of abdominal pain on admission along with nausea, vomiting and diarrhea. -10/30/2021 CT scan of the abdomen and pelvis without contrast showed small pleural effusions, cirrhosis of the liver bed with venous hypertension, small volume ascites. Diverticulosis of colon without evidence of diverticulitis, no dilated bowel loops (4) Diarrhea: Code(s): R19.7 - Diarrhea, unspecified Status: Acute Assessment and Plan: Patient was on antibiotics for diverticulitis recently and developed diarrhea, hypovolemia/dehydration and now hypotensive in shock -10/31 stool culture pending -10/31 WBC smear of stools was not detected -10/31 stool for C diff negative -Started on Flagyl (11/01) (5) COVID: Code(s): U07.1 - COVID-19 Status: Acute Assessment and Plan: Patient tested positive for SARS-CoV-2 PCR on admission in the ER which was an incidental finding -denies any shortness of breath, hypoxia -continue dexamethasone for 10 days -Remdesivir will be discontinued on 11/01/2021 due to renal dysfunction and decreased creatinine clearance (6) Thrombocytopenia: Code(s): D69.6 - Thrombocytopenia, unspecified Status: Acute Assessment and Plan: Could be multifactorial related to severe sepsis/septic shock, and or cirrhosis as seen on CT scan of the abdomen and pelvis (7) Diabetes mellitus: Code(s): E11.9 - Type 2 diabetes mellitus without complications Status: Acute Assessment and Plan: Continue Accu-Cheks and sliding scale insulin (8) Asthma-COPD overlap syndrome: Code(s): J44.9 - Chronic obstructive pulmonary disease, unspecified Status: Acute Assessment and Plan: Continue bronchodilators (9) Diverticulitis large intestine: Code(s): K57.32 - Diverticulitis of large intestine without perforation or abscess without bleeding Status: Acute Assessment and Plan: Recently admitted to [facility] on 10/15/2021 to 10/17/2021 with diverticulitis of the sigmoid colon was treated with ciprofloxacin and Flagyl and was discharged home on Augmentin (10) Electrolyte imbalance: Code(s): E87.8 - Other disorders of electrolyte and fluid balance, not elsewhere classified Status: Acute Assessment and Plan: Monitor (11) Cirrhosis: Code(s): K74.60 - Unspecified cirrhosis of liver Status: Acute Assessment and Plan: Possible history of cirrhosis as manifested on CT scan, -monitor for now (12) Blood in stool: Code(s): K92.1 - Melena Status: Acute Assessment and Plan: Monitor H&H Subjective Date/time seen: 11/01/21 11:51 Afib w rvr overnight still on pressors ongoing abdominal pain Exam Narrative: General: Patient is lying comfortably in bed in no acute distress HEENT:? Pupils equal and reactive, sclera is clear, dry oral mucosa Neck:? Supple, no lymphadenopathy Respirator
[2021-11-01 12:03] LABS: Creatinine Urine 94.9 mg/dL
[2021-11-01 12:06] LABS: Eosinophil Urine NONE SEEN % (None Seen); Potassium Urine Random 46.6 meq/L; Sodium Urine Random 20 meq/L
--- NOTE | 2021-11-01 12:14 | PCNFU ---
Nutrition Follow-Up Complete: Inadequate Energy Expenditure as related to COPD as evidenced by poor po intake reported/NPO. Goal; Meet estimated nutritional needs Patient is progressing towards goal. We will continue current goal. Pt current nutrition is Heart Healthy. Last recorded weight is 71.7 kg, up from 62.8 kg on admit. Bowel Motility: +Bm reported 11/01 Labs Reviewed:Glu 148, BUN 25, Cr 1.5,Na 135, Alb 2.1, hgb 11.6,Hct 35.4 Meds Noted:Lovenox, Synthroid, Bumex,Cefepime, Vancomycin Skin: WNL Additional Notes: Patient remains on COVID precautions. Eating 10-15% of heart healthy diet. Diet supplements added today of ensure compact BID providing an additional 220 kcals and 9 gms protein. Agree with diet orders. Will follow in ICU rounds and reassessing every 5 days.
--- NOTE | 2021-11-01 13:53 | P.CONNP_ITS ---
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/dialysis * follow trend of repeat labs and UOP (2) Shock: Code(s): R57.9 - Shock, unspecified Status: Acute Assessment and Plan: * suspect several issues responsible: * hypovolemia (diarrhea, nausea, vomiting) * AFib RVR and wide complex tachycardia * early sepsis(?) * on vasopressor therapy * not fluid responsive by cheetah * blood, urine, and stool cultures pending * on empiric antibiotic therapy (3) Abdominal pain: Qualifiers: Abdominal location: generalized Qualified Code(s): R10.84 - Generalized abdominal pain Code(s): R10.9 - Unspecified abdominal pain Status: Acute Assessment and Plan: * as noted on admission associated with nausea, vomiting and diarrhea * admission CT scan of abd/pelvis with small pleural effusions, cirrhosis of the liver bed with venous hypertension, small volume ascites, diverticulosis of colon without evidence of diverticulitis, no dilated bowel loops * recent bout of diveritculitis ~ 2 weeks ago * follow symptoms (4) Diarrhea: Code(s): R19.7 - Diarrhea, unspecified Status: Acute Assessment and Plan: * on antibiotics for diverticulitis recently * developed diarrhea, hypovolemia/dehydration and now hypotensive and in shock * stool culture pending * WBC smear of stool negative * C. diff toxin assay negative * empirically started on Flagyl (5) COVID: Code(s): U07.1 - COVID-19 Status: Acute Assessment and Plan: * incidental finding by testing in ER * no shortness of breath or hypoxia on admission * on decadron...off remdesivir due to JEFFREY/ARF * continue supportive therapy (6) Diabetes mellitus: Code(s): E11.9 - Type 2 diabetes mellitus without complications Status: Chronic Assessment and Plan: * follow accuchecks * glycemic control Will continue to follow. History of Present Illness Reason for Consult Consult date: 11/01/21 Reason for consult: acute renal failure Chief Complaint Chief complaint: a fib with rvr,hypokalemia,abdominal pain,hypokale History of Present Illness Narrative: The patient is an 81-year-old female with a past medical history as outlined below who presented to [facility] Emergency room a few days ago with complaints of nausea, vomiting, diarrhea, and abdominal pain. Most of the history that I have obtained is from review of the electronic medical record as well as discussion with the physician/ nurses involved in the patient's care. The patient was just recently hospitalized approximately 2 weeks ago for diverticulitis of the sigmoid colon and was treated with a course of Flagyl and ciprofloxacin with subsequent discharge home on oral antibiotic therapy. She apparently presented back to [facility] Emergency room several days later with complaints of melanotic stools but was deemed to be stable for discharge from the ER at that time as well. She returns to the ER a few days ago with the
--- NOTE | 2021-11-01 13:53 | PM.CNNEP ---
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 follow-up on renal ultrasound, urine lytes, urine eosinophils concerning that urine output has dropped in the last 24 - 48 hours remains at risk for possible need of FOUNDER/dialysis follow trend of repeat labs and UOP (2) Shock: Code(s): R57.9 - Shock, unspecified Status: Acute Assessment and Plan: suspect several issues responsible: hypovolemia (diarrhea, nausea, vomiting) AFib RVR and wide complex tachycardia early sepsis(?) on vasopressor therapy not fluid responsive by cheetah blood, urine, and stool cultures pending on empiric antibiotic therapy (3) Abdominal pain: Qualifiers: Abdominal location: generalized Qualified Code(s): R10.84 - Generalized abdominal pain Code(s): R10.9 - Unspecified abdominal pain Status: Acute Assessment and Plan: as noted on admission associated with nausea, vomiting and diarrhea admission CT scan of abd/pelvis with small pleural effusions, cirrhosis of the liver bed with venous hypertension, small volume ascites, diverticulosis of colon without evidence of diverticulitis, no dilated bowel loops recent bout of diveritculitis ~ 2 weeks ago follow symptoms (4) Diarrhea: Code(s): R19.7 - Diarrhea, unspecified Status: Acute Assessment and Plan: on antibiotics for diverticulitis recently developed diarrhea, hypovolemia/dehydration and now hypotensive and in shock stool culture pending WBC smear of stool negative C. diff toxin assay negative empirically started on Flagyl (5) COVID: Code(s): U07.1 - COVID-19 Status: Acute Assessment and Plan: incidental finding by testing in ER no shortness of breath or hypoxia on admission on decadron...off remdesivir due to JEFFREY/ARF continue supportive therapy (6) Diabetes mellitus: Code(s): E11.9 - Type 2 diabetes mellitus without complications Status: Chronic Assessment and Plan: follow accuchecks glycemic control Will continue to follow. History of Present Illness Reason for Consult Consult date: 11/01/21 Reason for consult: acute renal failure Chief Complaint Chief complaint: a fib with rvr,hypokalemia,abdominal pain,hypokale History of Present Illness Narrative: The patient is an 81-year-old female with a past medical history as outlined below who presented to [facility] Emergency room a few days ago with complaints of nausea, vomiting, diarrhea, and abdominal pain. Most of the history that I have obtained is from review of the electronic medical record as well as discussion with the physician/ nurses involved in the patient's care. The patient was just recently hospitalized approximately 2 weeks ago for diverticulitis of the sigmoid colon and was treated with a course of Flagyl and ciprofloxacin with subsequent discharge home on oral antibiotic therapy. She apparently presented back to [facility] Emergency room several days later with complaints of melanotic stools but was deemed to be stable for discharge from the ER at that time as well. She returns to the ER a few days ago with the above-mentioned complaints in association melanotic stools again. Workup and evaluation emergency room demonstrated the patient to be hemodynamically stable although she was noted to be in atrial fibrillation with rapid ventricular rate. She was started on a Cardizem drip for management of this issue. Routine blood test demonstrated a mildly elevated white blood cell count but stable hemoglobin and hematocrit. Chemistry showed normal renal fun
[2021-11-01] MEDS: metroNIDAZOLE 500 MG/ISO 100ML 500 MG/100 ML BAG 100 MG IVPB ×2 (13:54→20:44)
[2021-11-01] MEDS: NYSTATIN 100,000 UNITS/ML SUSP 5 ML ORAL.SUSP PO ×2 (17:10→19:52)
[2021-11-01 17:43] LABS: Glucose Point of Care 132 mg/dl (65-105)
[2021-11-01] MEDS: ATORVASTATIN 10 MG TABLET PO (19:52)
[2021-11-01] MEDS: SODIUM CHLORIDE 0.9% IV 1,000 ML 50 ML IV CONT (20:44)
[2021-11-01 20:57] LABS: Glucose Point of Care 166 mg/dl (65-105)
[2021-11-01] MEDS: AMIODARONE 360 MG/D5W 200 ML 360 MG/200 ML BAG 16.67 MG IV CONT (22:25)
[2021-11-02] VITALS (32 sets, daily range): BP systolic 81–137; BP diastolic 50–104; PULSE 73–157; RESP 17–40; TEMP 36–36.6; O2SAT 82–98
[2021-11-02] MEDS: AMIODARONE 150 MG/D5W 100 ML 150 MG/100 ML BAG 600 MG IV CONT ×2 (03:40→11:05)
[2021-11-02] MEDS: CENTRAL LINE FLUSH 10 ML IV PUSH ×4 (05:46→20:44)
[2021-11-02] MEDS: AMIODARONE 360 MG/D5W 200 ML 360 MG/200 ML BAG 33.33 MG IV CONT ×2 (05:58→13:12)
[2021-11-02] MEDS: metroNIDAZOLE 500 MG/ISO 100ML 500 MG/100 ML BAG 100 MG IVPB ×2 (05:58→14:37)
[2021-11-02] MEDS: BRINZOLAMIDE 1% OPHTH SUSP 10 ML 1 DROP RIGHT EYE ×2 (05:59→13:13)
[2021-11-02] MEDS: LEVOTHYROXINE SODIUM 125 MCG TABLET PO (06:00)
[2021-11-02 07:55] LABS: Lactic Acid Reflex 1.6 mmol/L (0.7-2.0)
[2021-11-02 08:15] LABS: INR 1.8; Prothrombin Time 20.6 Seconds (11.1-14.7)
[2021-11-02 08:16] LABS: Partial Thromboplastin Time 34.9 SECONDS (22.3-36.8)
[2021-11-02 08:32] LABS: Alanine Aminotransferase 17 U/L (6-35); Albumin Level 2.3 g/dL (3.5-5.1); Alkaline Phosphatase 143 U/L (38-126); Anion Gap 15 mmol/L (8-16); Aspartate Amino Transferase 54 U/L (14-36); Bilirubin,Total 1.1 mg/dL (0.2-1.3); Blood Urea Nitrogen 29 mg/dL (7-17); Calcium 7.8 mg/dL (8.4-10.2); Carbon Dioxide 17 mmol/L (22-30); Chloride 102 mmol/L (98-107); Estimated Glomerular Filt Rate 31; Glucose 122 mg/dL (65-110); Potassium 4.4 mmol/L (3.4-5.0); Sodium 134 mmol/L (137-145)
[2021-11-02] MEDS: FERROUS SULFATE 324 MG TABLET PO (08:55)
[2021-11-02] MEDS: PANTOPRAZOLE 40 MG TABLET PO ×2 (08:56→17:12)
[2021-11-02] MEDS: DEXAMETHASONE 2 MG TABLET 6 MG PO (08:56)
[2021-11-02] MEDS: CITALOPRAM HYDROBROMIDE 20 MG TABLET 40 MG PO (08:56)
[2021-11-02] MEDS: NYSTATIN 100,000 UNITS/ML SUSP 5 ML ORAL.SUSP PO ×3 (08:56→17:12)
[2021-11-02] MEDS: POTASSIUM CHLORIDE 10 MEQ TABLET PO (08:56)
[2021-11-02] MEDS: BRIMONIDINE TARTRATE 0.15% 5 ML OPHTH SOLN 1 DROP EACH EYE ×2 (08:58→17:11)
[2021-11-02] MEDS: ACETAMINOPHEN ELIXIR 325 MG/10.15 ML UDC 650 MG PO (08:59)
[2021-11-02] MEDS: ONDANSETRON INJ 4 MG/2 ML VIAL IV PUSH (09:01)
[2021-11-02] MEDS: FLUTICASONE/SALMETEROL 45-21 MCG (*SP) INHALER 2 PUFF INHALATION (09:18)
[2021-11-02] MEDS: LEVALBUTEROL NEB 1.25 MG/3 ML 0.63 MG INHALATION ×2 (09:18→14:54)
[2021-11-02] MEDS: IPRATROPIUM BR 0.02% INH SOLN 0.5 MG/2.5 ML VIAL INHALATION ×2 (09:18→14:54)
--- NOTE | 2021-11-02 09:26 | WPDINTPN ---
Progress Note: A&P Assessment and Plan (1) Shock: Code(s): R57.9 - Shock, unspecified Status: Acute Assessment and Plan: Hypotension could multifactorial: Secondary to Hypovolemia due to diarrhea, nausea, vomiting, could be related to AFib RVR, wide complex tachycardia, amiodarone -patient currently hypotensive, on Jaleel-Synephrine via peripheral IV line -left femoral central line was inserted on 11/20/2021 -continue Jaleel-Synephrine and target mean arterial pressures > 70 mmHg -DC IV fluids -decreased urine output, creatinine is been stable at 1.6 - 11/01: NICOM/cheetah overnight showed patient is not fluid responsive -lactic acid has normalized -11/02 chest x-ray: Small lung volumes with opacities in the left perihilar region and left lower lung zones which could represent atelectasis, pneumonia, small left pleural effusion or some combination thereof. -11/01: blood and urine cultures obtained pending -stool culture negative so far -C diff is negative -continue cefepime, vancomycin and Flagyl (11/01) (2) JEFFREY (acute kidney injury): Code(s): N17.9 - Acute kidney failure, unspecified Status: Acute (3) Atrial fibrillation with rapid ventricular response: Code(s): I48.91 - Unspecified atrial fibrillation Status: Acute Assessment and Plan: Patient has a history of AFib, overnight on 10/30 went into AFib RVR, was bolused with amiodarone 150 mg x 2, cardioverted x1 due to hypotension and hemodynamic instability, converted to sinus rhythm -patient again went in AFib RVR this morning, amiodarone infusion increased to 1 mg/min -not a candidate for anticoagulation as she presented with blood in stool, hemoglobin currently is stable, patient also thrombocytopenic (4) Abdominal pain: Qualifiers: Abdominal location: generalized Qualified Code(s): R10.84 - Generalized abdominal pain Code(s): R10.9 - Unspecified abdominal pain Status: Acute Assessment and Plan: Complained of abdominal pain on admission along with nausea, vomiting and diarrhea. -10/30/2021 CT scan of the abdomen and pelvis without contrast showed small pleural effusions, cirrhosis of the liver bed with venous hypertension, small volume ascites. Diverticulosis of colon without evidence of diverticulitis, no dilated bowel loops (5) Diarrhea: Code(s): R19.7 - Diarrhea, unspecified Status: Acute Assessment and Plan: Patient was on antibiotics for diverticulitis recently and developed diarrhea, hypovolemia/dehydration and now hypotensive in shock -10/31 stool culture pending -10/31 WBC smear of stools was not detected -10/31 stool for C diff negative -Started on Flagyl (11/01) (6) COVID: Code(s): U07.1 - COVID-19 Status: Acute Assessment and Plan: Patient tested positive for SARS-CoV-2 PCR on admission in the ER which was an incidental finding -denies any shortness of breath, hypoxia -continue dexamethasone for 10 days -Remdesivir will be discontinued on 11/01/2021 due to renal dysfunction and decreased creatinine clearance (7) Thrombocytopenia: Code(s): D69.6 - Thrombocytopenia, unspecified Status: Acute Assessment and Plan: Could be multifactorial related to severe sepsis/septic shock, and or cirrhosis as seen on CT scan of the abdomen and pelvis (8) Diabetes mellitus: Code(s): E11.9 - Type 2 diabetes mellitus without complications Status: Chronic Assessment and Plan: Continue Accu-Cheks and sliding scale insulin (9) Asthma-COPD overlap syndrome: Code(s): J44.9 - Chronic obstructive pulmonary disease, unspecified Status: Acute Assessment and Plan: Continue bronchodilators (10) Diverticulitis large intestine: Code(s): K57.32 - Diverticulitis of large intestine without perforation or abscess without bleeding Status: Acute Assessment and Plan: Recently admitted to [facility]
--- NOTE | 2021-11-02 09:31 | P.PNNP_ITS ---
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 * evaluation to date: * renal ultrasound without obstruction * urine electrolytes are pre-renal * urine eosinophils negative * CPK normal * urine output a tad better in the last 24 hours * rise in creatinine appears to have slowed as well * remains at risk for possible need of DIRECTOR BUILDING/dialysis * follow trend of repeat labs and UOP (2) Shock: Code(s): R57.9 - Shock, unspecified Status: Acute Assessment and Plan: * suspect several issues responsible: * hypovolemia (diarrhea, nausea, vomiting) * AFib RVR and wide complex tachycardia * early sepsis(?) * on vasopressor therapy * not fluid responsive by cheetah * blood, urine, and stool cultures pending * on empiric antibiotic therapy (3) Abdominal pain: Qualifiers: Abdominal location: generalized Qualified Code(s): R10.84 - Generalized abdominal pain Code(s): R10.9 - Unspecified abdominal pain Status: Acute Assessment and Plan: * as noted on admission associated with nausea, vomiting and diarrhea * admission CT scan of abd/pelvis with small pleural effusions, cirrhosis of the liver bed with venous hypertension, small volume ascites, diverticulosis of colon without evidence of diverticulitis, no dilated bowel loops * recent bout of diveritculitis ~ 2 weeks ago * follow symptoms (4) Diarrhea: Code(s): R19.7 - Diarrhea, unspecified Status: Acute Assessment and Plan: * on antibiotics for diverticulitis recently * developed diarrhea, hypovolemia/dehydration and now hypotensive and in shock * stool culture pending * WBC smear of stool negative * C. diff toxin assay negative * empirically started on Flagyl (5) COVID: Code(s): U07.1 - COVID-19 Status: Acute Assessment and Plan: * incidental finding by testing in ER * no shortness of breath or hypoxia on admission * on decadron...off remdesivir due to JEFFREY/ARF * continue supportive therapy (6) Diabetes mellitus: Code(s): E11.9 - Type 2 diabetes mellitus without complications Status: Chronic Assessment and Plan: * follow accuchecks * glycemic control Will continue to follow. Subjective Date/time seen: 11/02/21 9:31 One again had issues with Afib with RVR with subsequent adjustment in amiodarone infusion to compensate; remains on vasopressor therapy to maintain MAP/blood pressure support; no reported nausea/vomiting or abdominal pain but still having loose stools; mentation seems about the same. Exam Narrative: General: elderly Caucsian female in NAD Heart: normal S1 and S2; no rub Lungs: clear anteriorly but coarse/decreased at bases Abdomen: soft, nontender, nondistended, positive bowel sounds Extremities: no cyanosis or clubbing; 1+ edema Skin: warm and dry Objective Data Vital Signs Vital Signs: Vital Signs Temp Pulse Resp BP Pulse Ox O2 Del Method 11/02/21 09:25
--- NOTE | 2021-11-02 09:31 | PM.PNNEP ---
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 evaluation to date: renal ultrasound without obstruction urine electrolytes are pre-renal urine eosinophils negative CPK normal urine output a tad better in the last 24 hours rise in creatinine appears to have slowed as well remains at risk for possible need of SHOP TAILOR/dialysis follow trend of repeat labs and UOP (2) Shock: Code(s): R57.9 - Shock, unspecified Status: Acute Assessment and Plan: suspect several issues responsible: hypovolemia (diarrhea, nausea, vomiting) AFib RVR and wide complex tachycardia early sepsis(?) on vasopressor therapy not fluid responsive by cheetah blood, urine, and stool cultures pending on empiric antibiotic therapy (3) Abdominal pain: Qualifiers: Abdominal location: generalized Qualified Code(s): R10.84 - Generalized abdominal pain Code(s): R10.9 - Unspecified abdominal pain Status: Acute Assessment and Plan: as noted on admission associated with nausea, vomiting and diarrhea admission CT scan of abd/pelvis with small pleural effusions, cirrhosis of the liver bed with venous hypertension, small volume ascites, diverticulosis of colon without evidence of diverticulitis, no dilated bowel loops recent bout of diveritculitis ~ 2 weeks ago follow symptoms (4) Diarrhea: Code(s): R19.7 - Diarrhea, unspecified Status: Acute Assessment and Plan: on antibiotics for diverticulitis recently developed diarrhea, hypovolemia/dehydration and now hypotensive and in shock stool culture pending WBC smear of stool negative C. diff toxin assay negative empirically started on Flagyl (5) COVID: Code(s): U07.1 - COVID-19 Status: Acute Assessment and Plan: incidental finding by testing in ER no shortness of breath or hypoxia on admission on decadron...off remdesivir due to JEFFREY/ARF continue supportive therapy (6) Diabetes mellitus: Code(s): E11.9 - Type 2 diabetes mellitus without complications Status: Chronic Assessment and Plan: follow accuchecks glycemic control Will continue to follow. Subjective Date/time seen: 11/02/21 9:31 One again had issues with Afib with RVR with subsequent adjustment in amiodarone infusion to compensate; remains on vasopressor therapy to maintain MAP/blood pressure support; no reported nausea/vomiting or abdominal pain but still having loose stools; mentation seems about the same. Exam Narrative: General: elderly Caucsian female in NAD Heart: normal S1 and S2; no rub Lungs: clear anteriorly but coarse/decreased at bases Abdomen: soft, nontender, nondistended, positive bowel sounds Extremities: no cyanosis or clubbing; 1+ edema Skin: warm and dry Objective Data Vital Signs Vital Signs: Vital Signs Temp Pulse Resp BP Pulse Ox O2 Del Method 11/02/21 09:25 112 H 137/69 11/02/21 09:18 95 Room Air 11/02/21 09:18 129 H 33 H 11/02/21 08:00 114 H 106/55 L 11/02/21 08:00 114 H 106/55 L 11/02/21 05:58 109 H 114/73 11/02/21 05:58 109 H 114/73 11/02/21 05:46 110 H 114/73 11/02/21 05:46 101 H 114/73 11/02/21 05:44 106 H 29 H 114/73 94 11/02/21 04:00 108 H 11/02/21 04:00 36.6 C 108 H 24 H 98/72 L 95 11/02/21 03:58 108 H 22 H 96 Room Air 11/02/21 03:45 121 H 108/83 11/02/21 03:40 103 H 108/83 11/02/21 01:32 36.6 C 73 28 H 117/104 H 97 11/02/21 00:00 36.6 C 86 23 H 117/104 H 97 11/02/21 00:00 86 11/02/21 00:00 86 17 97 Room A
[2021-11-02 09:56] LABS: Basophils Absolute Auto 0.1 K/mm3 (0.0-0.1); Basophils Percent Auto 0.3 % (0.2-1.2); Hematocrit 38.6 % (37.0-47.0); Hemoglobin 12.7 g/dL (12.0-15.0); Immature Granulocyte Absolute 0.67 K/mm3 (0.00-0.031); Immature Granulocyte Percent A 2.4 % (0-0.5); Immature Platelet Fraction Pct 3.3 % (0.9-11.2); Lymphocytes Absolute Auto 0.54 K/mm3 (0.9-3.2); Lymphocytes Percent Auto 1.9 % (18.3-44.2); Mean Corpuscular HGB Conc 32.9 g/dl (32-36); Mean Corpuscular Hemoglobin 31.8 pg (26-34); Mean Corpuscular Volume 96.7 fl (80-100); Mean Platelet Volume 11.5 fl (7.4-10.4); Monocytes Percent Auto 7.3 % (2.6-8.5); Neutrophils Absolute Auto 24.4 K/mm3 (1.3-6.7); Neutrophils Percent Auto 88.1 % (45.5-73.1); Platelet Count Result 102 k/mm3 (150-375); Red Blood Count 3.99 M/mm3 (4.2-5.4); Red Cell Distribution Width 16.9 % (11.5-14.5); White Blood Count 27.7 K/mm3 (4.5-10.0)
[2021-11-02 10:43] LABS: Crenated RBC 1+ (NORMAL)
[2021-11-02] MEDS: ALTEPLASE 2 MG VIAL (CATHFLO) IV PUSH ×3 (11:07→11:15)
[2021-11-02 12:38] LABS: Glucose Point of Care 163 mg/dl (65-105)
--- NOTE | 2021-11-02 13:00 | PM.IMPN ---
Progress Note: A&P Assessment and Plan (1) Shock: Code(s): R57.9 - Shock, unspecified Status: Acute Assessment and Plan: Hypotension could multifactorial: Secondary to Hypovolemia due to diarrhea, nausea, vomiting, could be related to AFib RVR, wide complex tachycardia, amiodarone Continue pressors Management per ICU -11/01 chest x-ray showed worsening airspace opacities in right perihilar region and left lung base consistent with atelectasis versus pneumonia -obtain blood and urine cultures -stool culture -started patient on cefepime, vancomycin and Flagyl (11/01) (2) Atrial fibrillation with rapid ventricular response: Code(s): I48.91 - Unspecified atrial fibrillation Status: Acute Assessment and Plan: Continue amiodarone. (3) Abdominal pain: Qualifiers: Abdominal location: generalized Qualified Code(s): R10.84 - Generalized abdominal pain Code(s): R10.9 - Unspecified abdominal pain Status: Acute Assessment and Plan: Complained of abdominal pain on admission along with nausea, vomiting and diarrhea. -10/30/2021 CT scan of the abdomen and pelvis without contrast showed small pleural effusions, cirrhosis of the liver bed with venous hypertension, small volume ascites. Diverticulosis of colon without evidence of diverticulitis, no dilated bowel loops (4) Diarrhea: Code(s): R19.7 - Diarrhea, unspecified Status: Acute Assessment and Plan: Patient was on antibiotics for diverticulitis recently and developed diarrhea, hypovolemia/dehydration and now hypotensive in shock -10/31 stool culture pending -10/31 WBC smear of stools was not detected -10/31 stool for C diff negative -Started on Flagyl (11/01) (5) COVID: Code(s): U07.1 - COVID-19 Status: Acute Assessment and Plan: Patient tested positive for SARS-CoV-2 PCR on admission in the ER which was an incidental finding -denies any shortness of breath, hypoxia -continue dexamethasone for 10 days -Remdesivir will be discontinued on 11/01/2021 due to renal dysfunction and decreased creatinine clearance (6) Thrombocytopenia: Code(s): D69.6 - Thrombocytopenia, unspecified Status: Acute Assessment and Plan: Could be multifactorial related to severe sepsis/septic shock, and or cirrhosis as seen on CT scan of the abdomen and pelvis (7) Diabetes mellitus: Code(s): E11.9 - Type 2 diabetes mellitus without complications Status: Chronic Assessment and Plan: Continue Accu-Cheks and sliding scale insulin (8) Asthma-COPD overlap syndrome: Code(s): J44.9 - Chronic obstructive pulmonary disease, unspecified Status: Acute Assessment and Plan: Continue bronchodilators (9) Diverticulitis large intestine: Code(s): K57.32 - Diverticulitis of large intestine without perforation or abscess without bleeding Status: Acute Assessment and Plan: Recently admitted to [facility] on 10/15/2021 to 10/17/2021 with diverticulitis of the sigmoid colon was treated with ciprofloxacin and Flagyl and was discharged home on Augmentin (10) Electrolyte imbalance: Code(s): E87.8 - Other disorders of electrolyte and fluid balance, not elsewhere classified Status: Acute Assessment and Plan: Monitor (11) Cirrhosis: Code(s): K74.60 - Unspecified cirrhosis of liver Status: Acute Assessment and Plan: Possible history of cirrhosis as manifested on CT scan, -monitor for now (12) Blood in stool: Code(s): K92.1 - Melena Status: Acute Assessment and Plan: Monitor H&H Subjective Date/time seen: 11/02/21 13:00 Still an 8 atrial fibrillation. Objective Data Vital Signs Vital Signs: Vital Signs - 24 hr 11/01/21 13:26 11/01/21 14:00 11/01/21 14:00 Temperature 97.1 F L Pulse Rate 73 73 Respiratory Rate 25 H Blood Pressure 102/54 L Pulse Oximetry 97
[2021-11-02] MEDS: METOPROLOL TARTRATE INJ 5 MG/5 ML VIAL 2.5 MG IV PUSH (14:06)
[2021-11-02] MEDS: BUMETANIDE INJ 1 MG/4 ML VIAL 0.5 MG IV PUSH (14:38)
[2021-11-02] MEDS: LIDOCAINE HCL 1% PF INJ 5 ML VIAL INFILTRATE (16:46)
[2021-11-02 17:22] LABS: Glucose Point of Care 157 mg/dl (65-105)
[2021-11-02] MEDS: LORazepam INJ (*CRX) 2 MG/ML VIAL 0.5 MG IV PUSH (17:49)
--- NOTE | 2021-11-02 19:17 | PC.NURSE ---
Patient requests to be comfort care. She states, stop everything that could be prolonging my life and make me comfortable. Family notified. They request 4 people be allowed to come see her. Approval granted for 4 people to come, 2 at a time, and both patient and family requested to wear masks during visit. Informed family that even with these guidelines there is some risk that they could contract covid. Family verbalizes understanding. Dr. Gaines notified and put in comfort care orders. Message left notifying Dr. Garner.
[2021-11-02] MEDS: MORPHINE SULFATE (*CRX) 2 MG/ML INJ IV PUSH ×3 (20:36→23:01)
[2021-11-02] MEDS: LORazepam INJ (*CRX) 2 MG/ML VIAL IV PUSH ×2 (20:45→23:01)
--- NOTE | 2021-11-02 23:23 | PC.NURSE ---
2124 Dr Gaines called because comfort care orders not in computer and patient still ICU status. Received order to make patient comfort care. Pt already a DNR/DNI.
[2021-11-03] VITALS: BP 101/74; PULSE 143; RESP 19; O2SAT 88
[2021-11-03] MEDS: MORPHINE SULFATE (*CRX) 2 MG/ML INJ IV PUSH ×4 (01:06→15:06)
[2021-11-03] MEDS: LORazepam INJ (*CRX) 2 MG/ML VIAL IV PUSH ×3 (01:06→11:57)
[2021-11-03 01:59] VITALS: PULSE 126
--- NOTE | 2021-11-03 03:00 | ADMGEN ---
This patient, Tammy Mccracken, was admitted to Medical Room 253-01. Patient/family oriented to hospital policies and general routines including ID bracelet, bed and alarms, visiting hours, pain management, procedures, bathroom and other care routines, personal items, smoking policy, room service/diet, and visiting hours. Information on how to activate the Rapid Response Team has been discussed. Patient/Family are encouraged to report perceived risks to care and to ask questions if they do not understand what they are told or what they should do.
--- NOTE | 2021-11-03 03:07 | PC.NURSE ---
This patient, Tammy Mccracken, was transferred 253 on 11/03/21 at 0245. Personal belongings sent with patient. Report given to CACHORRO Magallanes. Appropriate documentation sent with patient.
[2021-11-03 04:00] VITALS: BP 71/47; PULSE 47; RESP 10; TEMP 36.2; O2SAT 70
[2021-11-03] MEDS: CENTRAL LINE FLUSH 10 ML IV PUSH ×2 (09:00→15:06)
--- NOTE | 2021-11-03 10:42 | PM.IMPN ---
Progress Note: A&P Assessment and Plan (1) Shock: Code(s): R57.9 - Shock, unspecified Status: Acute (2) Atrial fibrillation with rapid ventricular response: Code(s): I48.91 - Unspecified atrial fibrillation Status: Acute (3) Abdominal pain: Qualifiers: Abdominal location: generalized Qualified Code(s): R10.84 - Generalized abdominal pain Code(s): R10.9 - Unspecified abdominal pain Status: Acute (4) Diarrhea: Code(s): R19.7 - Diarrhea, unspecified Status: Acute (5) COVID: Code(s): U07.1 - COVID-19 Status: Acute (6) Thrombocytopenia: Code(s): D69.6 - Thrombocytopenia, unspecified Status: Acute (7) Diabetes mellitus: Code(s): E11.9 - Type 2 diabetes mellitus without complications Status: Chronic (8) Asthma-COPD overlap syndrome: Code(s): J44.9 - Chronic obstructive pulmonary disease, unspecified Status: Acute (9) Diverticulitis large intestine: Code(s): K57.32 - Diverticulitis of large intestine without perforation or abscess without bleeding Status: Acute (10) Electrolyte imbalance: Code(s): E87.8 - Other disorders of electrolyte and fluid balance, not elsewhere classified Status: Acute (11) Cirrhosis: Code(s): K74.60 - Unspecified cirrhosis of liver Status: Acute (12) Blood in stool: Code(s): K92.1 - Melena Status: Acute Plan Patient is comfort measures Subjective Date/time seen: 11/03/21 10:42 Patient is comfort measures, appears comfortable Objective Data Vital Signs Vital Signs: Vital Signs - 24 hr 11/02/21 11:05 11/02/21 11:06 11/02/21 12:00 Temperature Pulse Rate 130 H 120 H Respiratory Rate Blood Pressure 91/68 L 91/68 L Pulse Oximetry 95 Oxygen Delivery Room Air Oxygen Flow Rate 11/02/21 12:00 11/02/21 13:12 11/02/21 14:06 Temperature Pulse Rate 123 H 147 H 119 H Respiratory Rate Blood Pressure 81/58 L Pulse Oximetry Oxygen Delivery Oxygen Flow Rate 11/02/21 12:00 11/02/21 14:00 11/02/21 14:00 Temperature 96.8 F L Pulse Rate 125 H 128 H 128 H Respiratory Rate 31 H 38 H Blood Pressure 96/68 L 94/67 L Pulse Oximetry 94 93 Oxygen Delivery Oxygen Flow Rate 11/02/21 14:54 11/02/21 15:08 11/02/21 15:35 Temperature Pulse Rate 118 H 122 H Respiratory Rate 30 H 31 H Blood Pressure Pulse Oximetry 98 Oxygen Delivery Nasal Cannula Oxygen Flow Rate 2 11/02/21 15:58 11/02/21 16:03 11/02/21 16:00 Temperature Pulse Rate 127 H Respiratory Rate Blood Pressure Pulse Oximetry 93 96 Oxygen Delivery Room Air Room Air Oxygen Flow Rate 11/02/21 16:00 11/02/21 12:00 11/02/21 14:00 Temperature 97 F L Pulse Rate 136 H 125 H 128 H Respiratory Rate 36 H Blood Pressure 125/83 96/68 L 94/67 L Pulse Oximetry 97 Oxygen Delivery Oxygen Flow Rate 11/02/21 16:00 11/02/21 16:45 11/02/21 14:00 Temperature Pulse Rate 136 H 136 H 128 H Respiratory Rate Blood Pressure 125/83 125/83 94/67 L Pulse Oximetry Oxygen Delivery Oxygen Flow Rate 11/02/21 17:12 11/02/21 18:00 11/02/21 18:00 Temperature Pulse Rate 136 H 133 H Respiratory Rate 36 H Blood Pressure 115/78 96/50 L Pulse Oximetry 97 Oxygen Delivery Oxygen Flow Rate 11/02/21 18:00 11/02/21 17:55 11/02/21 20:00 Temperature Pulse Rate 133 H 130 H 157 H Respiratory Rate 34 H Blood Pressure 96/50 L Pulse Oximetry 97 87 L Oxygen Delivery BiPAP Room Air Oxygen Flow Rate 11/02/21 20:00 11/02/21 20:00 11/02/21 22:00 Temperature 97.5 F L Pulse Rate 157 H 157 H 154 H Respiratory Rate 40 H Blood Pressure 115/86 Pulse Oximetry 87 L Oxygen Delivery Oxygen Flow Rate 11/02/21 22:00 11/03/21 00:00 11/03/21 00:00 Temperature Pulse Rate 154 H 143 H 143 H Respiratory Rate 27 H 19 Blood Pressure 115/86
[2021-11-03 10:54] VITALS: BP 93/59; PULSE 59; RESP 12; TEMP 36.5; O2SAT 74
--- NOTE | 2021-11-03 18:43 | PC.NURSE ---
removed ro catheter, femoral line, and PICC line before patient taken by home
[2021-11-05 20:33] LABS: Chloride Rand Ur 30 mmol/L (32-290); Chloride/Creatinine Rand Ur 33 (38-318); Creatinine Random Urine 91 mg/dL (20-275)
--- NOTE | 2021-11-16 07:06 | PC.NURSE ---
Addendum to Permit for Removal of Body date: 11/03/2021 time: edit 1531, strike [phone].
--- NOTE | 2021-11-16 14:15 | PC.NURSE ---
This patient, Tammy Mccracken on 11/03/2021 at 1531 with confirmed absence of pupillary reflexes, palpable pulse, and breath sounds. Family was at the bedside. Around 1545: [facility] was called and stated she was not a candidate for donation. Around 1610: financial services consultant was notified of and said the patient could be released to the home whenever we were ready. The daughters sitting at the bedside remained in the room for a long while and after a long while, I went to the room to speak to them about arrangements. The daughter, Maria Esther, said they would like her to go to [facility] in [place]. I called [facility] and spoke with a lady there. She asked me to let her know when the family was gone, she would be there to pick and shovel worker the body as soon as we called. Soon after, I received a call from the retail warehouse associate, the director operating room was there to pick and shovel worker the patient and would pick her up from the room. She arrived around 1840 with an senior assistant manager and picked her up then.
--- NOTE | 2021-11-22 10:49 | PM.DDS ---
Discharge Summary Date and Time Date of : 11/03/21 Time of : 15:45 Probable Cause of Probable Cause of : Shock, sepsis, AFib, COVID Summary Hospital Course: patient was admitted with shock which was likely multifactorial. Patient did have diarrhea nausea vomiting and complaining abdominal pain. Also to note patient was COVID positive. Nonetheless patient was treated in the ICU with IV pressors and fluids however patient subsequently worsened and decision was ultimately to make the patient comfort measures.
== END 2021-11-03 13:31 | disposition expired | DRG 871 ==
LOC: ANHED 04:05 → ANHICU 06:04 → ANHIMU 10-31 00:06 → ANHICU 10-31 00:06 → ANH2MED 11-03 03:41
PROVIDERS: Family Medicine; Internal Medicine; Physician Assistant; Student in an Organized Health Care Education/Training Program; Admitting Provider Internal Medicine; Emergency Provider Emergency Medicine; PCP Internal Medicine; Visit Provider Internal Medicine
DX: A41.9 Sepsis, unspecified organism (principal); R65.21 Severe sepsis with septic shock; U07.1 COVID-19; J18.9 Pneumonia, unspecified organism; N17.0 Acute kidney failure with tubular necrosis; K57.32 Diverticulitis of large intestine without perforation or abscess without bleeding; K92.1 Melena; J98.11 Atelectasis; J44.0 Chronic obstructive pulmonary disease with (acute) lower respiratory infection; R57.1 Hypovolemic shock; R57.8 Other shock; K74.60 Unspecified cirrhosis of liver; E11.9 Type 2 diabetes mellitus without complications; E87.6 Hypokalemia; R19.7 Diarrhea, unspecified; I48.91 Unspecified atrial fibrillation; F41.8 Other specified anxiety disorders; E86.0 Dehydration; K57.90 Diverticulosis of intestine, part unspecified, without perforation or abscess without bleeding; I35.0 Nonrheumatic aortic (valve) stenosis; I10 Essential (primary) hypertension; I95.9 Hypotension, unspecified; E78.5 Hyperlipidemia, unspecified; G25.81 Restless legs syndrome; G89.29 Other chronic pain; R00.0 Tachycardia, unspecified; D69.59 Other secondary thrombocytopenia; E03.9 Hypothyroidism, unspecified; E87.8 Other disorders of electrolyte and fluid balance, not elsewhere classified; Z66 Do not resuscitate; Z90.49 Acquired absence of other specified parts of digestive tract; Z90.710 Acquired absence of both cervix and uterus
CPT/HCPCS: 36415; 36569; 71045; 74176; 76775; 80048; 80053; 81001; 82274; 82436; 82550; 82570; 82948; 83605; 83690; 83735; 84133; 84300; 84460; 84484; 85014; 85018; 85025; 85027; 85055; 85610; 85730; 85999; 87040; 87045; 87081; 87086; 87269; 87272; 87427; 87493; 89055; 93005; 93306; 94002; 94640; 94660; 96361; 96365; 96375; 99285; A9270; C1751; C9803; J0131; J0248; J0282; J0692; J2060; J2250; J2270; J2370; J2405; J2550; J2997; J3370; J3475; J3480; J7030; J7040; J7050; J7060; J8540; U0003; U0005